=== PATIENT | female | born 1955 | race Caucasian/White ===

== ENCOUNTER 2025-04-29 08:37 | Inpatient (IN) ==
--- NOTE | 2025-04-22 14:43 | Anesthesiology Consultation ---
Date of Service April 22, 2025 Assessment & Plan (1) Encounter for pre-operative examination: - Infectious disease screening: Per assessment on 04/22/25- No known recent infectious disease contacts or current infectious disease symptoms. - "Refusal of blood products" documented by PAT RN phone interview 04/22/25 (OR made aware) Chart Review Chart Review: Acceptable Risk for Surgery (pending evaluation DOS) and Patient NOT seen in Pre Admission Testing History Surgery Operation Date: 04/29/25 07:15 Proposed Procedures p Laparoscopic Versus Possible Open Lower Anterior Colon Resection - Vitor Monson, Height/Weight Height: 5 ft 1 in Weight: 63.503 kg Allergies Allergy/AdvReac Type Severity Reaction Status Date / Time metronidazole [From Flagyl] Allergy Unknown Hives Verified 04/22/25 14:04 Medications Home Medications Medication Instructions Recorded Confirmed Last Taken aspirin 81 mg tablet 81 mg PO DAILY 03/11/25 04/22/25 Unknown cholecalciferol (vitamin D3) 25 25 mcg PO DAILY 03/11/25 04/22/25 Unknown mcg (1,000 unit) capsule lisinopril 20 mg tablet 20 mg PO QAM 03/11/25 04/22/25 Unknown multivitamin 1 tab PO DAILY 03/11/25 04/22/25 Unknown omega 2-tct-vgh-fish oil 1,000 mg 1 cap PO DAILY 03/11/25 04/22/25 Unknown (120 mg-180 mg) capsule (Fish Oil) Past Medical History Medical History Basal cell carcinoma removed from left yazidism Colonic stricture HTN (hypertension) Hx of migraines Refusal of blood product Past Family History Family History Father Cancer Mother Cancer Grandmother Breast cancer Past Surgical History Surgical History H/O colonoscopy 12/30/24 + 01/19/25 History of surgery on wrist x2 Social History Smoking Status: Never smoker Do You Dip or Chew Tobacco: No Hx Alcohol Use: Yes Alcohol type: wine alcohol intake frequency: a few times a month Hx Substance Use: No substance use type: does not use Lab Results Anesthesia Preop Results Results Anesthesia Widget: Na 141 mmol/L (136-145) 03/02/25 K 4.4 mmol/L (3.5-5.1) 03/02/25 Cl 107 mmol/L (98-107) 03/02/25 CO2 29.0 mmol/L (21-32) 03/02/25 BUN 20.0 mg/dL (7-18) H 03/02/25 Creat 1.00 mg/dL (0.6-1.2) 03/02/25 Glucose Level 86 mg/dL (70-99) 03/02/25 Testing Laboratory Results 03/02/25 WBC 7.5 H/H 12.4/40.9 PLATELETS 420 Electrocardiogram Date: 03/31/25 SB at 58bpm. Marked LAD. Possible anterior myocardial infarction of indeterminate age. No physical limitations, denies SOB with stairs, no noted cardiopulmonary limiting complaints per PAT RN phone interview 04/22/25*
[2025-04-29] MEDS: LR 15ML/HR IV SCH (09:09)
[2025-04-29] MEDS ORDERED: MIDAZOLAM HCL 1 MG/ML 2ML VIAL ONE (09:21)
[2025-04-29] MEDS ORDERED: LIDOCAINE 2% 2 ML VIAL/AMP(20MG/ML) INFIL ONE (09:23)
[2025-04-29] MEDS ORDERED: PROPOFOL IV EMULSION 10 MG/ML 20 ML VIAL IV ONE (09:23)
[2025-04-29] MEDS ORDERED: ONDANSETRON INJ 2 MG/ML 2 ML VIAL ONE (09:23)
[2025-04-29] MEDS ORDERED: DEXAMETHASONE SOD INJ 4 MG/ML VIAL ONE (09:23)
--- NOTE | 2025-04-29 09:27 | History & Physical Report ---
Date of Service April 29, 2025 Assessment & Plan (1) Colonic stricture: Plan: discussed options/risks. questions answered. will proceed today with laparoscopic low anterior resection with intra-operative colonoscopy. pt agrees with the plan History of Present Illness Primary Care Provider: Nikos Aviles, pt here for colectomy for sigmoid stricture. no major changes to her health history since I had seen her last Allergies Allergy/AdvReac Type Severity Reaction Status Date / Time metronidazole [From Flagyl] Allergy Unknown Hives Verified 04/29/25 09:14 Home Medications Medication Instructions Recorded Confirmed Type aspirin 81 mg tablet 81 mg PO DAILY 03/11/25 04/29/25 History cholecalciferol (vitamin D3) 25 25 mcg PO DAILY 03/11/25 04/29/25 History mcg (1,000 unit) capsule lisinopril 20 mg tablet 20 mg PO QAM 03/11/25 04/29/25 History multivitamin 1 tab PO DAILY 03/11/25 04/29/25 History omega 5-lqw-vkc-fish oil 1,000 mg 1 cap PO DAILY 03/11/25 04/29/25 History (120 mg-180 mg) capsule (Fish Oil) Past Med/Surg History Problem List Encounter for pre-operative examination Colonic stricture Hypertension Medical History Basal cell carcinoma removed from left worship Colonic stricture HTN (hypertension) Hx of migraines Refusal of blood product Surgical History H/O colonoscopy 12/30/24 + 01/19/25 History of surgery on wrist x2 Family History Father Cancer Mother Cancer Grandmother Breast cancer Social History Smoking Status: Never smoker Second Hand Exposure: No; Do You Dip or Chew Tobacco: No; Tobacco Cessation Education Requested by Patient: No Hx Alcohol Use: Yes Alcohol type: wine Alcohol Intake Frequency: Monthly or Less Hx Substance Use: No Preferred Language: Greenlandic Communication Ability: Effective Enterprise Solutions Architect Required: No Beliefs That Will Affect Care: Orthodoxy Orthodoxy Beliefs: refusal blood transfusions marital status: / Current Living Situation: Alone current occupational status: retired How many Children do You have: 2 Other Information That Helps Us Care for You: No Feels Safe at Home: Yes Safety Concerns: Feels Safe At This Time during the past year weight has: decreased > 10 lbs Assistive Devices: Glasses Physical Exam Constitutional: WD/WN, vitals as above no acute distress and not ill appearing Eyes: PERRL, conjunctivae normal, anicteric sclerae EOM intact bilaterally ENMT: external ear and nose normal, oropharynx normal Ears: no hearing impairment Neck: trachea midline, no thyromegaly Respiratory: normal respiratory effort; no respiratory distress and does not use accessory muscles Cardiovascular: Rate/Rhythm: regular rate and regular rhythm Gastrointestinal (Abdomen): normal bowel sounds, soft, nontender, no hepatosplenomegaly Skin: no rashes, warm and dry Psychiatric: Orientation: alert, oriented x 3 and cooperative Results & Data Vital Signs (Past 12 Hours) Vital Signs Temp Pulse Resp BP Pulse Ox O2 Del Method 04/29/25 08:50 36.4 C L 76 19 143/86 H 97 Room Air
[2025-04-29] MEDS ORDERED: ROCURONIUM BROMIDE 10 MG/ML 5 ML VIAL IV ONE ×3 (09:45→13:20)
[2025-04-29] MEDS ORDERED: HYDROmorphone INJ 2 MG/ML SYR/VIAL IV PRN (09:55)
[2025-04-29] MEDS ORDERED: ATROPINE SULFATE 0.1 MG/ML 10ML SYR IV PRN (09:55)
[2025-04-29] MEDS ORDERED: KETOROLAC 30 MG/ML VIAL IV PRN (09:55)
[2025-04-29] MEDS ORDERED: HYDROmorphone INJ 2 MG/ML SYR/VIAL ONE (10:51)
[2025-04-29] MEDS ORDERED: LABETALOL HCL IV 5 MG/ML 20ML IV ONE (11:23)
[2025-04-29] MEDS ORDERED: ACETAMINOPHEN 1000 MG/100 ML IV IV ONE (12:00)
[2025-04-29] MEDS ORDERED: ALBUMIN HUMAN 5% 12.5 GM/250 ML VIAL IV ONE (12:00)
[2025-04-29] MEDS ORDERED: SODIUM CHLORIDE 0.9% 100 ML IV PRN (12:43)
[2025-04-29 12:53] LABS: Hematocrit (blood only) 33.1 % (37.0-47.0); Hemoglobin 10.8 g/dl (12.0-16.0); Mean Corpuscular Hemoglobin 27.4 pg (25.0-34.0); Mean Corpuscular Volume 84.0 fL (80.0-100.0); Platelet Count 167 K/uL (130-400); RDW Standard Deviation 46.3 fL (36.4-46.3); Red Blood Count 3.94 M/uL (4.20-5.40); White Blood Count 18.07 K/ul (4.8-10.8)
[2025-04-29] MEDS ORDERED: SUGAMMADEX SODIUM 200 MG/2 ML VIAL IV ONE (13:53)
[2025-04-29] MEDS ORDERED: ceFAZolin 330 MG/ML 1 GM VIAL ONE (13:58)
[2025-04-29] MEDS: BUPIVACAINE/EPINEPHRINE 0.5% MPF 1:200,000 30 ML VIAL ONE (14:28)
--- NOTE | 2025-04-29 14:29 | Operative Report ---
PG Post Operative Report Pre & Post Diagnosis Operation Date: 04/29/25 09:55 Pre-Op Diagnosis: Colonic stricture Post-Op Diagnosis: Colonic stricture; extensive adhesions I identified the patient and participated in the time-out.: Yes Procedure Operation Date: 04/29/25 09:55 Actual Procedures p Laparoscopic Exploration; converted to Open Low Anterior Colon Resection with Handsewn Anastomosis(Not Applicable); mobilization of splenic flexure - Vitor Monson DO Surgeon Vitor Monson DO Felt Hat Mellowing Machine Operator geronimo Suero Estimated Blood Loss 500 Findings Consistent with Post-Op Diagnosis Specimens recto-sigmoid Description of Procedure After informed consent was obtained the patient was taken to the operating room and placed in supine position. After successful intubation the patient was placed in a low lithotomy position. A Aguirre catheter was placed sterilely. Both arms were tucked. I began with a supraumbilical incision. This was carried down through the soft tissue using cautery. Anterior fascia was opened using cautery and two #0 Vicryl stay sutures were placed. Peritoneum was elevated with hemostats and incised under direct vision using a Metzenbaum scissor. Finger sweep was performed. A 12 mm Ferrari trocar was placed and the abdomen was insufflated to 18 mmHg. Laparoscope was inserted and the abdomen was examined 360 degrees. A right lower quadrant 12 mm trocar a right mid abdominal 5 mm trocar and eventually a left mid abdominal 5 mm trocar would be placed. The patient was placed in a Trendelenburg position and airplaned to the right. I began looking at the sigmoid colon. From the sigmoid colon down over the pelvic brim the colon was extremely hard and completely adhesed to the left pelvic sidewall as well as the uterus. I began above the area of pathology and mobilized the white line of Toldt using harmonic scalpel and gentle blunt dissection. I then went distal to the area of pathology and mobilized the colon away from the left fallopian tube as well as the uterus. There was a probably 6 cm segment of bowel that was just extremely firm and nonmobile. I therefore made a small window in the mesentery proximal to the pathology and divided the colon using a QI purple cartridge linear stapler. I then used the harmonic scalpel and began taking down the mesentery. I attempted to mobilize the colon for about an hour. At this point I decided that it was not safe to continue and I converted to a midline laparotomy. We removed all the trocars and desufflated the abdomen. I extended the camera port site several centimeters proximally and then distally down to the pubic symphysis. Once in the abdomen I continued to mobilize the inflamed colon using my hands primarily blunt dissection and small amounts of harmonic scalpel. We did use the Bookwalter retractor throughout to dietitian helper our exposure. Eventually I was able to mobilize it. The bowel itself appeared to be too inflamed to perform a stapled anastomosis. There also was not much in the way of extra redundant colon. I therefore mobilized the remainder of the left colon up and around the splenic flexure to the mid transverse colon. I then had my physician fitness assistant go down to the rectum and placed a 25 mm sizer to make sure we had traversed the strictured area and were not leaving any of it behind. I picked a spot distal to the stricture , clamped it with a bowel clamp and divided using a heavy Verma scissor. We then used Allis clamps to close the stump to prevent any leakage. We took down the remainder of the mesentery using the harmonic scalpel and passed the specimen off to be sent to pathology. At this point I set about performing a handsewn low anterior anastomosis. After mobilizing the splenic flexure I was able to lay the left colon over the pelvic brim. We freshened up the edges. 3-0 silk was used in simple erupted fashion to place a posterior serosal layer of suture s. We then used 3-0 Monocryl to perform a running mucosal/serosal layer using the Edith stitch technique. Once I had the anastomosis completely completed we then changed our gloves and thoroughly irrigated the pelvis. We did do a leak test using a rigid proctoscope. I used my hands to pinch off the colon proximal to the anastomosis and inflated it under water. There was 1 small area on the anterior portion with a small bubble leak. I reinforced this using additional 3-0 Monocryl. We then retested it and there was no evidence of any anastomotic leak whatsoever. I then completed the anastomosis using 3-0 silk for an anterior layer. A final irrigation was performed. There was adequate hemostasis. A 10 flat Sherwin-De Leon drain was placed into the pelvis and brought out through the right lower quadrant trocar site. It was secured to the skin using 2-0 nylon. The fascia was closed using oh looped PDS starting either pole running and securing them together in the midline. Soft tissue was irrigated and skin was closed with a skin stapler over quarter inch Shane drain. Silver dressings were used. The patient was awakened extubated and transferred to recovery in stable condition. My physician fitness assistant was present through the entire case was instrumental in providing exposure assisting with the anastomosis wound closure and dressing placement. I attest to the content of the Intraoperative Record and any orders documented therein. Any exceptions are noted below.
--- NOTE | 2025-04-29 15:23 | Anesthesiology Progress Note ---
Date of Service April 29, 2025 Anesthesia Post Procedure Vital Signs Vital Signs: Temp Pulse Pulse Resp BP Pulse Ox O2 Del Method 04/29/25 15:10 79 17 138/83 93 Room Air 04/29/25 15:00 61 11 L 142/72 H 99 Oxymask 04/29/25 14:50 66 16 139/78 98 Oxymask 04/29/25 14:40 61 16 137/72 98 Oxymask 04/29/25 14:30 65 13 140/74 100 Oxymask 04/29/25 14:21 36.0 C L 71 12 156/84 H 100 Oxymask 04/29/25 08:50 36.4 C L 76 19 143/86 H 97 Room Air O2 Flow Rate 04/29/25 15:10 0 04/29/25 15:00 4 04/29/25 14:50 4 04/29/25 14:40 4 04/29/25 14:30 4 04/29/25 14:21 4 04/29/25 08:50 Pain Intensity Abdomen: Pain Intensity: 4 Transfer of Care Handoff Completed per policy Notes Mental Status: alert / awake / arousable and participated in evaluation Patient Amnestic to Procedure: Yes Nausea / Vomiting: adequately controlled Pain: adequately controlled Airway Patency, RR, SpO2: stable & adequate BP & HR: stable & adequate Hydration State: stable & adequate Anesthetic Complications: no major complications apparent and Pt Satisfied with anesthetic care
[2025-04-29] MEDS ORDERED: MoRPHine SULFATE 4 MG/ML 1 ML CARP\\VIAL IV PRN (16:36)
[2025-04-29] MEDS: LACTATED RINGER'S 1,000 ML IV SCH (16:56)
--- NOTE | 2025-04-29 17:51 | Hospitalist Consultation ---
Date of Consultation April 29, 2025 Assessment & Plan (1) Colonic stricture: Colonic stricture s/p operative intervention 04/29: S/p ex lap, conversion to open low anterior colon resection with handsewn anastomosis, mobilization of splenic flexure Stapled anastomosis was not performed due to significant inflammation Received perioperative cefazolin DVT prophylaxis, diet per primary team Pain control with Tylenol first-line, scaled morphine second line Denies cardiac comorbidities/heart failure/chest pain. Had a EKG with sinus bradycardia. She has appropriate chronotropic response and is not bradycardic at the bedside. Hypertension Lisinopril held day of operative intervention BMP morning of 04/30. If creatinine normal lisinopril 04/30, hold for JACK or hypotension Atelectasis 2 L oxygen requirement, she is saturating 100% at the bedside Wean oxygen to goal 90%. Do not hyperoxygenated greater than 94% Incentive spirometer encouraged. Suspect mild atelectasis. (2) Hypertension: History of Present Illness Attending Physician: Vitor Monson, DO History of Present Illness Gilma is a 69-year-old female with a past medical history of essential hypertension who presented for operative intervention of a colonic stricture. She underwent ex lap with mobilization of splenic flexure. And conversion to open low anterior colon resection with handsewn anastomosis on 04/28/2025. We are consulted for medical management Gilma is seen at the bedside postop. She reports that she has been seen for bowel obstruction and had surgical resection as planned today. She reports she has some postoperative tenderness this is currently 45/10 and tolerable to her. Throat is a little sore in the breathing tube and she feels she has a little bit of postnasal drip. Otherwise no complaints. Denies shortness of breath or difficulty breathing. No fevers chills or sweats. Endorses a history of hypertension well-controlled with lisinopril, she denies any other medical problems other than this and her bowel blockage. She reports that she has had no history of blood clots or easy bleeding. No history of diabetes. She takes no prescription medications other than lisinopril. She does not use tobacco products Denies alcohol use Denies recreational drug use Denies allergies other than Flagyl Allergies Allergy/AdvReac Type Severity Reaction Status Date / Time metronidazole [From Flagyl] Allergy Unknown Hives Verified 04/29/25 09:14 Home Medications Medication Instructions Recorded Confirmed Type aspirin 81 mg tablet 81 mg PO DAILY 03/11/25 04/29/25 History cholecalciferol (vitamin D3) 25 25 mcg PO DAILY 03/11/25 04/29/25 History mcg (1,000 unit) capsule lisinopril 20 mg tablet 20 mg PO QAM 03/11/25 04/29/25 History multivitamin 1 tab PO DAILY 03/11/25 04/29/25 History omega 4-sye-lhw-fish oil 1,000 mg 1 cap PO DAILY 03/11/25 04/29/25 History (120 mg-180 mg) capsule (Fish Oil) Patient History Medical History Refusal of blood product Hx of migraines HTN (hypertension) Colonic stricture Basal cell carcinoma removed from left nondenominational Surgical History (Updated 04/29/25 @ 14:59 by Alice Villanueva, ANNETTE) History of colon resection (04/29/25) Laparoscopic Exploration; converted to Open Low Anterior Colon Resection with Handsewn Anastomosis; mobilization of splenic flexure - Vitor Monson, History of surgery on wrist x2 H/O colonoscopy 12/30/24 + 01/19/25 Family History Father Cancer Mother Cancer Grandmother Breast cancer Social History Smoking Status: Never smoker Second Hand Exposure: No; Do You Dip or Chew Tobacco: No; Tobacco Cessation Education Requested by Patient: No Hx Alcohol Use: Yes Alcohol type: wine Alcohol Intake Frequency: Monthly or Less Hx Substance Use: No Preferred Language: Arabic Communication Ability: Effective Beverage Steward Required: No Beliefs That Will Affect Care: Catholic Catholic Beliefs: refusal blood transfusions marital status: / Current Living Situation: Alone current occupational status: retired How many Children do You have: 2 Other Information That Helps Us Care for You: No Feels Safe at Home: Yes Safety Concerns: Feels Safe At This Time during the past year weight has: decreased > 10 lbs Assistive Devices: Glasses Physical Exam Physical Exam: General: A&Ox3. NAD. Cooperative. HEENT: Atraumatic, normocephalic. Vision and hearing grossly intact Pulm: CTAB A&P. -wheezes, -rales, -rhonchi. Symmetrical chest rise. No increased work of breathing. No respiratory distress. Cardiac: RRR, -mrg. Radial pulses intact and symmetrical. Abdominal: Appropriate postoperative tenderness without rigidity/involuntary guarding. Mildly diffusely tender. Bowel sounds diminished, but present Results & Data Results & Data Vital Signs (Past 12 Hours) Vital Signs Temp Pulse Pulse Pulse Pulse Resp BP 04/29/25 17:34 36.3 C L 84 16 122/76 04/29/25 17:00 36.4 C L 94 H 16 126/79 04/29/25 16:30 36.4 C L 85 14 119/80 04/29/25 16:10 36.3 C L 87 19 129/79 04/29/25 16:00 78 17 129/73 04/29/25 15:50 73 12 127/76 04/29/25 15:40 70 14 133/75 04/29/25 15:30 58 L 15 129/76 04/29/25 15:20 63 13 121/75 04/29/25 15:10 79 17 138/83 04/29/25 15:00 61 11 L 142/72 H 04/29/25 14:50 66 16 139/78 04/29/25 14:40 61 16 137/72 04/29/25 14:30 65 13 140/74 04/29/25 14:21 36.0 C L 71 12 156/84 H 04/29/25 08:50 36.4 C L 76 19 143/86 H Pulse Ox O2 Del Method O2 Flow Rate 04/29/25 17:34 99 Nasal Cannula 2 04/29/25 17:00 99 Nasal Cannula 2 04/29/25 16:30 98 Room Air 04/29/25 16:10 97 Nasal Cannula 2 04/29/25 16:00 98 Nasal Cannula 2 04/29/25 15:50 98 Nasal Cannula 2 04/29/25 15:40 99 Nasal Cannula 2 04/29/25 15:30 99 Nasal Cannula 2 04/29/25 15:20 98 Nasal Cannula 2 04/29/25 15:10 93 Room Air 0 04/29/25 15:00 99 Oxymask 4 04/29/25 14:50 98 Oxymask 4 04/29/25 14:40 98 Oxymask 4 04/29/25 14:30 100 Oxymask 4 04/29/25 14:21 100 Oxymask 4 04/29/25 08:50 97 Room Air PG Care Time/CCT Total # of Minutes Spent Total Time Spent with Patient: Total time spent is greater than 50% in coordination of care (as documented) at patient's floor/unit and/or counseling patient: Coding Level of Care Code 89361 IN/OBS CONSULT LVL 3,45M Diagnoses Colonic stricture K56.699 Hypertension I10
[2025-04-29] MEDS: ACETAMINOPHEN 1,000 MG/100 ML VIAL IV SCH (20:33)
[2025-04-29] MEDS: ONDANSETRON INJ 2 MG/ML 2 ML VIAL IV PRN (22:10)
[2025-04-30 06:55] LABS: Hematocrit (blood only) 32.6 % (37.0-47.0); Hemoglobin 10.6 g/dl (12.0-16.0); Immature Granulocytes # (auto) 0.08 K/uL (0.01-0.20); Immature Granulocytes % (auto) 0.5 %; Mean Corpuscular Hemoglobin 28.0 pg (25.0-34.0); Mean Corpuscular Volume 86.2 fL (80.0-100.0); Platelet Count 307 K/uL (130-400); RDW Standard Deviation 47.7 fL (36.4-46.3); Red Blood Count 3.78 M/uL (4.20-5.40); White Blood Count 17.33 K/ul (4.8-10.8)
[2025-04-30 07:11] LABS: Anion Gap 5.0 (3-11); Blood Urea Nitrogen 13.0 mg/dl (6-23); Calcium 8.2 mg/dl (8.6-10.3); Carbon Dioxide 26.0 mmol/L (21-32); Chloride 107.0 mmol/L (98-107); Creatinine Clr Calc Pharmacy 52.5 ml/min; Glucose 122.0 mg/dl (70-99(Fasting)); Potassium 4.7 mmol/L (3.5-5.1); Sodium 138.0 mmol/L (136-145)
--- NOTE | 2025-04-30 08:33 | Surgery Progress Note ---
Date of Service April 30, 2025 Assessment & Plan (1) History of colon resection: Plan: Doing as expected postop day 1 H/H is stable Will allow some clear liquids today. Out of bed today Dr. Pierre covering for the weekend Admission and Anticipated Discharge Date Admission Date: April 29, 2025 Subjective Patient seen. Doing well considering the scope of her surgery. Pain control adequate currently Physical Exam Physical Exam: Alert no acute distress PRITI drain looks good. Abdomen with expected tenderness. Results & Data Vital Signs (Past 12 Hours) Vital Signs Temp Pulse Pulse Resp BP BP Pulse Ox 04/30/25 07:10 36.6 C 72 17 146/76 H 99 04/30/25 03:13 36.5 C 69 18 132/70 98 04/29/25 23:27 37.0 C 73 18 119/72 97 04/29/25 22:33 O2 Del Method O2 Flow Rate 04/30/25 07:10 Room Air 04/30/25 03:13 Nasal Cannula 2 04/29/25 23:27 Nasal Cannula 2 04/29/25 22:33 Nasal Cannula 2 PG Care Time/CCT Total # of Minutes Spent Total Time Spent with Patient: Total time spent is greater than 50% in coordination of care (as documented) at patient's floor/unit and/or counseling patient: Coding Level of Care Code 30312 Post Operative Follow-Up Diagnoses History of colon resection Z90.49
[2025-04-30] MEDS: ASPIRIN 81 MG ECTAB PO SCH (09:21)
[2025-04-30] MEDS: MoRPHine SULFATE 2 MG/ML CARP IV PRN (09:21)
--- NOTE | 2025-04-30 12:54 | Hospitalist Progress Note ---
Date of Service April 30, 2025 Assessment & Plan (1) Colonic stricture: Plan: Colonic stricture s/p operative intervention 04/29: S/p ex lap, conversion to open low anterior colon resection with handsewn anastomosis, mobilization of splenic flexure. Stapled anastomosis was not performed due to significant inflammation. Received perioperative cefazolin Overall doing well, adequate pain control Diet per primary team. Has been advanced to clears DVT prophylaxis per surgical team Pain control with Tylenol first-line, scaled morphine second line Denies cardiac comorbidities/heart failure/chest pain. Had a EKG with sinus bradycardia. She has appropriate chronotropic response and is not bradycardic at the bedside. Hypertension Lisinopril resumed Normotensive Creatinine at baseline Atelectasis Resolved. Continue incentive spirometry while inpatient. Suspect transient oxygen requirement postoperatively was atelectatic. Patient denies other medical comorbidities or acute concerns, appears to be doing well. Will sign off, if any new or acute concerns develop we are happy to see Swati/reconsult anytime. (2) Hypertension: Admission and Anticipated Discharge Date Admission Date: April 29, 2025 Subjective Seen at the bedside. Doing well. Reports her pain is 45/10, tolerable to her this morning. She is laying flat in bed at time of bedside visit. No fevers chills or sweats. No headache. She is not short of breath. No difficulty breathing. No chest pain. Overall feels she is doing well, no acute concerns. Physical Exam Physical Exam: General: A&Ox3. NAD. Cooperative. HEENT: Atraumatic, normocephalic. Vision and hearing grossly intact Pulm: CTAB A&P. -wheezes, -rales, -rhonchi. Symmetrical chest rise. No increase in work of breathing. No respiratory distress. Cardiac: RRR, -mrg. Radial pulses intact and symmetrical. Abdominal: Minimal appropriate postsurgical abdominal tenderness, no focal tenderness rebound guarding or rigidity. Results & Data Results & Data Vital Signs (Past 12 Hours) Vital Signs Temp Pulse Pulse Resp BP BP Pulse Ox 04/30/25 11:52 37.0 C 76 16 127/74 93 04/30/25 07:10 36.6 C 72 17 146/76 H 99 04/30/25 03:13 36.5 C 69 18 132/70 98 O2 Del Method O2 Flow Rate 04/30/25 11:52 Room Air 08/01/25 07:10 Room Air 04/30/25 03:13 Nasal Cannula 2 PG Care Time/CCT Total # of Minutes Spent Total Time Spent with Patient: Total time spent is greater than 50% in coordination of care (as documented) at patient's floor/unit and/or counseling patient: Coding Level of Care Code 81124 SUB INP/OBS CARE 2/35MIN Diagnoses Colonic stricture K56.699 Hypertension I10
[2025-05-01 07:52] LABS: Hematocrit (blood only) 29.8 % (37.0-47.0); Hemoglobin 9.8 g/dl (12.0-16.0); Immature Granulocytes # (auto) 0.08 K/uL (0.01-0.20); Immature Granulocytes % (auto) 0.5 %; Mean Corpuscular Hemoglobin 28.2 pg (25.0-34.0); Mean Corpuscular Volume 85.9 fL (80.0-100.0); Platelet Count 305 K/uL (130-400); RDW Standard Deviation 47.8 fL (36.4-46.3); Red Blood Count 3.47 M/uL (4.20-5.40); White Blood Count 15.48 K/ul (4.8-10.8)
[2025-05-01 08:09] LABS: Anion Gap 2.0 (3-11); Blood Urea Nitrogen 9.0 mg/dl (6-23); Calcium 8.3 mg/dl (8.6-10.3); Carbon Dioxide 29.0 mmol/L (21-32); Chloride 107.0 mmol/L (98-107); Creatinine Clr Calc Pharmacy 62.9 ml/min; Glucose 110.0 mg/dl (70-99(Fasting)); Potassium 4.2 mmol/L (3.5-5.1); Sodium 138.0 mmol/L (136-145)
--- NOTE | 2025-05-01 12:35 | Surgery Progress Note ---
Date of Service May 01, 2025 Assessment & Plan (1) History of colon resection: Plan: POD #2 low anterior resection, awaiting return of bowel function Continue clear liquids, advised her to take it slow Will add Protonix, heartburn and burping should improve once return of bowel Ambulate, out of bed to chair, I-S Lovenox Admission and Anticipated Discharge Date Admission Date: April 29, [address] Monson. POD #2 low anterior resection with handsewn anastomosis. Having heartburn, some burping. No flatus. Not taking in much clear liquid at this point. Physical Exam Constitutional: WD/WN, vitals as above Gastrointestinal (Abdomen): Inspection/Auscultation: + abdominal surgical incision ([place], no infection, Acticoat, external dressing changed) and + abdominal surgical drain present (PRITI serosanguineous) Percussion/Palpation: + abdomen tender (Appropriately tender to palpation) and abdomen soft; no guarding and abdomen not rigid Results & Data Vital Signs (Past 12 Hours) Vital Signs Temp Pulse Resp BP Pulse Ox O2 Del Method 05/01/25 07:25 37 C 88 16 123/69 95 Room Air Laboratory Results Laboratory Results - last 24 hr 04/29/25 05/01/25 08:52 07:29 WBC 15.48 H RBC 3.47 L Hgb 9.8 L Hct 29.8 L MCV 85.9 MCH 28.2 MCHC 32.9 RDW Std Deviation 47.8 H RDW Coeff of Hubert 15.1 H Plt Count 305 MPV 9.8 Immature Gran % (Auto) 0.5 Neut % (Auto) 86.2 Lymph % (Auto) 6.1 [place] % (Auto) 6.5 Eos % (Auto) 0.4 Baso % (Auto) 0.3 Neut # (Auto) 13.36 H Lymph # (Auto) 0.94 L [place] # (Auto) 1.00 H Eos # (Auto) 0.06 Baso # (Auto) 0.04 Immature Gran # (Auto) 0.08 Sodium 138 Potassium 4.2 Chloride 107 Carbon Dioxide 29 Anion Gap 2 L BUN 9 Creatinine 0.71 Est Cr Clr Drug Dosing 62.9 eGFR 90.85 BUN/Creatinine Ratio 12.7 Glucose 110 H Calcium 8.3 L Crossmatch See Detail PG Care Time/CCT Total # of Minutes Spent Total Time Spent with Patient: Total time spent is greater than 50% in coordination of care (as documented) at patient's floor/unit and/or counseling patient: Coding Level of Care Code None Diagnoses History of colon resection Z90.49
[2025-05-01] MEDS: ENOXAPARIN INJ 40 MG/0.4 ML SYR SQ SCH (13:06)
[2025-05-01] MEDS: PANTOprazole 40 MG/10 ML SYR IV SCH (13:06)
[2025-05-02 07:07] LABS: Hematocrit (blood only) 30.1 % (37.0-47.0); Hemoglobin 9.5 g/dl (12.0-16.0); Immature Granulocytes # (auto) 0.08 K/uL (0.01-0.20); Immature Granulocytes % (auto) 0.5 %; Mean Corpuscular Hemoglobin 27.5 pg (25.0-34.0); Mean Corpuscular Volume 87.2 fL (80.0-100.0); Platelet Count 314 K/uL (130-400); RDW Standard Deviation 47.8 fL (36.4-46.3); Red Blood Count 3.45 M/uL (4.20-5.40); White Blood Count 17.22 K/ul (4.8-10.8)
[2025-05-02 07:30] LABS: Anion Gap 4.0 (3-11); Blood Urea Nitrogen 8.0 mg/dl (6-23); Calcium 8.2 mg/dl (8.6-10.3); Carbon Dioxide 28.0 mmol/L (21-32); Chloride 106.0 mmol/L (98-107); Creatinine Clr Calc Pharmacy 73.2 ml/min; Glucose 104.0 mg/dl (70-99(Fasting)); Potassium 3.9 mmol/L (3.5-5.1); Sodium 138.0 mmol/L (136-145)
--- NOTE | 2025-05-02 10:16 | Surgery Progress Note ---
Date of Service May 02, 2025 Assessment & Plan (1) History of colon resection: Plan: POD #3 low anterior resection, awaiting return of bowel function. WBC elevated, was 18 preop. Continue to monitor. Continue clear liquids, await return of bowel function Continue Protonix heartburn and burping should improve once return of bowel Ambulate, out of bed to chair, I-S Admission and Anticipated Discharge Date Admission Date: April 29, [address] Monson. POD #3 low anterior resection with handsewn anastomosis. Still having heartburn, some burping. No flatus. Not taking in much clear liquid at this point. Physical Exam Constitutional: WD/WN, vitals as above Gastrointestinal (Abdomen): Inspection/Auscultation: + abdominal surgical incision ([place], no infection, Acticoat, external dressing changed) and + abdominal surgical drain present (PRITI serosanguineous) Percussion/Palpation: + abdomen tender (Appropriately tender to palpation) and abdomen soft; no guarding and abdomen not rigid Results & Data Vital Signs (Past 12 Hours) Vital Signs Temp Pulse Resp BP Pulse Ox O2 Del Method 05/02/25 07:07 36.5 C 89 16 139/80 95 Room Air 05/01/25 23:46 37.6 C H 91 H 16 133/80 93 Room Air Laboratory Results Laboratory Results - last 24 hr 05/02/25 06:28 WBC 17.22 H RBC 3.45 L Hgb 9.5 L Hct 30.1 L MCV 87.2 MCH 27.5 MCHC 31.6 L RDW Std Deviation 47.8 H RDW Coeff of Hubert 14.9 H Plt Count 314 MPV 10.0 Immature Gran % (Auto) 0.5 Neut % (Auto) 86.9 Lymph % (Auto) 6.6 [place] % (Auto) 4.8 Eos % (Auto) 1.0 Baso % (Auto) 0.2 Neut # (Auto) 14.95 H Lymph # (Auto) 1.14 L [place] # (Auto) 0.83 H Eos # (Auto) 0.18 Baso # (Auto) 0.04 Immature Gran # (Auto) 0.08 Sodium 138 Potassium 3.9 Chloride 106 Carbon Dioxide 28 Anion Gap 4 BUN 8 Creatinine 0.61 Est Cr Clr Drug Dosing 73.2 eGFR 95.52 BUN/Creatinine Ratio 13.1 Glucose 104 H Calcium 8.2 L PG Care Time/CCT Total # of Minutes Spent Total Time Spent with Patient: Total time spent is greater than 50% in coordination of care (as documented) at patient's floor/unit and/or counseling patient: Coding Level of Care Code None Diagnoses History of colon resection Z90.49
[2025-05-03 06:23] LABS: Hematocrit (blood only) 29.8 % (37.0-47.0); Hemoglobin 9.7 g/dl (12.0-16.0); Immature Granulocytes # (auto) 0.07 K/uL (0.01-0.20); Immature Granulocytes % (auto) 0.4 %; Mean Corpuscular Hemoglobin 28.2 pg (25.0-34.0); Mean Corpuscular Volume 86.6 fL (80.0-100.0); Platelet Count 344 K/uL (130-400); RDW Standard Deviation 47.3 fL (36.4-46.3); Red Blood Count 3.44 M/uL (4.20-5.40); White Blood Count 15.57 K/ul (4.8-10.8)
[2025-05-03 06:40] LABS: Anion Gap 5.0 (3-11); Blood Urea Nitrogen 10.0 mg/dl (6-23); Calcium 8.1 mg/dl (8.6-10.3); Carbon Dioxide 27.0 mmol/L (21-32); Chloride 105.0 mmol/L (98-107); Creatinine Clr Calc Pharmacy 70.9 ml/min; Glucose 88.0 mg/dl (70-99(Fasting)); Potassium 3.6 mmol/L (3.5-5.1); Sodium 137.0 mmol/L (136-145)
--- NOTE | 2025-05-03 09:39 | Surgery Progress Note ---
Date of Service May 03, 2025 Assessment & Plan (1) History of colon resection: Plan: POD #4 low anterior resection WBC 15.5 (17). Vitals stable, no fevers Continue clear liquids, await return of bowel function Majority of travis drain was falling out of the lower portion of incision, i removed this and changed dressing. midline nasrin and incision without infection PRITI serosang, leave in place Ambulate, out of bed to chair, I-S As above. Looks and feels well. Feels as though in a bowel movement is pending. Stay on clears until full return of bowel function. Admission and Anticipated Discharge Date Admission Date: April 29, 2025 Subjective Patient doing okay. Had some abdominal pain after coughing this AM, otherwise manageable. Wiffs of intermittent nausea, but they pass. Otherwise tolerating clears. Physical Exam Physical Exam: awake/alert, sitting in chair Gastrointestinal (Abdomen): Inspection/Auscultation: + abdominal surgical incision (c/d/i, travis drain 80% out. no signs of infection) Percussion/Palpation: + abdomen tender (expected kellee incisional discomfort ) and abdomen soft Results & Data Vital Signs (Past 12 Hours) Vital Signs Temp Pulse Pulse Resp BP Pulse Ox O2 Del Method 05/03/25 08:23 98.2 F 88 16 137/83 95 Room Air 05/03/25 07:23 Room Air 05/02/25 22:25 99.0 F 86 16 154/76 H 94 Room Air PG Care Time/CCT Total # of Minutes Spent Total Time Spent with Patient: Total time spent is greater than 50% in coordination of care (as documented) at patient's floor/unit and/or counseling patient: Coding Level of Care Code 87312 Post Operative Follow-Up Diagnoses History of colon resection Z90.49
[2025-05-04 08:04] LABS: Hematocrit (blood only) 30.9 % (37.0-47.0); Hemoglobin 10.3 g/dl (12.0-16.0); Immature Granulocytes # (auto) 0.04 K/uL (0.01-0.20); Immature Granulocytes % (auto) 0.3 %; Mean Corpuscular Hemoglobin 28.3 pg (25.0-34.0); Mean Corpuscular Volume 84.9 fL (80.0-100.0); Platelet Count 420 K/uL (130-400); RDW Standard Deviation 45.4 fL (36.4-46.3); Red Blood Count 3.64 M/uL (4.20-5.40); White Blood Count 13.05 K/ul (4.8-10.8)
[2025-05-04 08:20] LABS: Anion Gap 6.0 (3-11); Blood Urea Nitrogen 12.0 mg/dl (6-23); Calcium 8.3 mg/dl (8.6-10.3); Carbon Dioxide 30.0 mmol/L (21-32); Chloride 103.0 mmol/L (98-107); Creatinine Clr Calc Pharmacy 68.7 ml/min; Glucose 111.0 mg/dl (70-99(Fasting)); Potassium 4.0 mmol/L (3.5-5.1); Sodium 139.0 mmol/L (136-145)
--- NOTE | 2025-05-04 09:54 | Surgery Progress Note ---
Date of Service May 04, 2025 Assessment & Plan (1) History of colon resection: Plan: Doing as expected Awaiting return of bowel function prior to advancing diet Path still pending Admission and Anticipated Discharge Date Admission Date: April 29, 2025 Subjective Patient seen. Doing okay. Getting lots of bowel noises. Had several small episodes of nausea yesterday as well as some acid reflux. No emesis. She is tolerating clear liquids. She continues to feel as though she is going to have a bowel movement although no function yet Physical Exam Physical Exam: Alert no acute distress Incision looks good. Abdomen is distended. Positive bowel sounds Results & Data Vital Signs (Past 12 Hours) Vital Signs Temp Pulse Resp BP Pulse Ox O2 Del Method 05/04/25 09:38 72 126/69 95 Room Air 05/04/25 08:27 Room Air 05/04/25 07:38 36.5 C 86 16 132/80 94 Room Air 05/03/25 23:38 36.9 C 83 18 136/76 95 Room Air PG Care Time/CCT Total # of Minutes Spent Total Time Spent with Patient: Total time spent is greater than 50% in coordination of care (as documented) at patient's floor/unit and/or counseling patient: Coding Level of Care Code 81559 Post Operative Follow-Up Diagnoses History of colon resection Z90.49
[2025-05-04] MEDS ORDERED: ACETAMINOPHEN 325 MG TAB PO PRN (12:06)
[2025-05-05 07:28] LABS: Hematocrit (blood only) 29.2 % (37.0-47.0); Hemoglobin 9.5 g/dl (12.0-16.0); Immature Granulocytes # (auto) 0.05 K/uL (0.01-0.20); Immature Granulocytes % (auto) 0.5 %; Mean Corpuscular Hemoglobin 27.5 pg (25.0-34.0); Mean Corpuscular Volume 84.6 fL (80.0-100.0); Platelet Count 393 K/uL (130-400); RDW Standard Deviation 45.2 fL (36.4-46.3); Red Blood Count 3.45 M/uL (4.20-5.40); White Blood Count 9.19 K/ul (4.8-10.8)
[2025-05-05 07:45] LABS: Anion Gap 4.0 (3-11); Blood Urea Nitrogen 11.0 mg/dl (6-23); Calcium 8.2 mg/dl (8.6-10.3); Carbon Dioxide 31.0 mmol/L (21-32); Chloride 104.0 mmol/L (98-107); Creatinine Clr Calc Pharmacy 70.9 ml/min; Glucose 95.0 mg/dl (70-99(Fasting)); Potassium 4.1 mmol/L (3.5-5.1); Sodium 139.0 mmol/L (136-145)
--- NOTE | 2025-05-05 11:34 | Surgery Progress Note ---
Date of Service May 05, 2025 Assessment & Plan (1) History of colon resection: Plan: POD #6 low anterior resection WBC 9,Hbg 9.5. Vitals stable She has started having + bowel function Diet is being advanced from liquids to low fiber Midline incision with nasrin and no signs of infection. PRITI serosang (will remove) She is eager to be discharged if tolerates low fiber for lunch, this is reasonable Diet and d/c instructions reviewed, f/u in the office with Dr. Monson in 1 week As above. Feeling well after bowel movement. Would like more to eat. She really would like to go home later today. If she tolerates a light diet her pain is controlled and her bowels are functioning. Discharge home later today if she tolerates food for lunch Admission and Anticipated Discharge Date Admission Date: April 29, 2025 Subjective Patient feeling well. + gas and BM yesterday. Tolerating full liquids, no n/v. pain manageable. Physical Exam Physical Exam: awake/alert, sitting up in chair Respiratory: normal respiratory effort Gastrointestinal (Abdomen): Inspection/Auscultation: + abdominal surgical incision (midline incision without signs of infection, serous fluid on dressing) and + abdominal surgical drain present (serosang); abdomen not distended Percussion/Palpation: abdomen soft Results & Data Vital Signs (Past 12 Hours) Vital Signs Temp Pulse Resp BP Pulse Ox O2 Del Method 05/05/25 07:08 98.2 F 85 15 123/73 96 Room Air PG Care Time/CCT Total # of Minutes Spent Total Time Spent with Patient: Total time spent is greater than 50% in coordination of care (as documented) at patient's floor/unit and/or counseling patient: Coding Level of Care Code 26878 Post Operative Follow-Up Diagnoses History of colon resection Z90.49
[2025-05-05 11:54] VITALS: BP 128/79; PULSE 84; RESP 14; TEMP 97.5; O2SAT 95
--- NOTE | 2025-05-07 10:23 | Discharge Summary ---
Date of Service May 05, 2025 Admission HPI Per Admitting Provider pt here for colectomy for sigmoid stricture. no major changes to her health history since I had seen her last Principal Diagnosis exploratory laparotomy with low anterior colon resection Discharge Exam awake/alert, sitting up in chair Respiratory normal respiratory effort Gastrointestinal (Abdomen) Inspection/Auscultation: + abdominal surgical incision (midline incision without signs of infection, serous fluid on dressing) and + abdominal surgical drain present (serosang); abdomen not distended Percussion/Palpation: + abdomen tender (expected kellee incisional discomfort ) and abdomen soft Discharge Data Allergies Allergy/AdvReac Type Severity Reaction Status Date / Time metronidazole [From Flagyl] Allergy Unknown Hives Verified 04/29/25 09:14 Consultations 04/29/25 16:36 Consult Hospitalist Routine Procedures Performed Operation Date: 04/29/25 09:55 Actual Procedures p Laparoscopic Exploration; Open Lower Anterior Colon Resection with Handsewn Anastomosis(Not Applicable) - Vitor Monson, DO Hospital Course (1) History of colon resection: This is a 69yF with a PMH of colonic stricture who presents to the [facility] on 7 for an elective low anterior colon resection with Dr. Monson. The patient ultimately underwent laparoscopic converted to open low anterior colon resection. The patient tolerated the procedure well, see op note for full details. She recovered in the PACU and was transferred to the med/surg floor in stable condition. She was ordered for 24 hrs post operative antibiotics. On POD#1 she was started on clear liquids. Aguirre catheter was removed and she was able to void spontaneously. Activity and pulmonary toilet encouraged. On POD#2 lovenox started for DVT prophylaxis. Over the next several days her diet was then slowly advanced as she started having return of bowel function in the terms of flatus and BMs. Her mandi drain remained serosang in nature. Midline incision remained intact with nasrin without evidence of infection. On POD#6 the patient was doing well with a diet and having + bowel function. Her surgical drain was removed. She was deemed stable for discharge to home on 8/, with instructions to follow up in the office in 1-[address] Monson. Total Time Total Time Spent Total Time Spent (In Minutes): 15 Discharge Plan Discharge Items Patient Disposition: Home - Home Health Services Reason For Visit: Partial Intestinal Obstruction, Unspecified as of Discharge Diagnosis: Open Lower Anterior Colon Resection Activity: Per Instructions section Lifting: No more than 10 pounds Bathing Comment: may shower; no soaking in tubs/pools x 2 weeks Exercise/Sports: Wait until after follow-up appointment Driving/Machine Use: no driving while taking narcotics for pain Non-emergency contact: Surgeon Call non-emergency contact if: you have any medication questions, your symptoms worsen, your pain is not controlled, your pain is worsening, your pain is unusual for you, you have a fever, your temperature is above 101.5, your wound has increased redness, your wound has increased drainage and your wound pain has increased Follow-up/Referrals: Vitor Monson DO [Surgeon] - (Call office for follow up in 1 week) Nikos Aviles DO [Primary Care Provider] - Diet: Low Fiber Addtl Attending Provider Instructions: SPECIAL CARE INSTRUCTIONS: * Dressing: Change your abdominal dressing daily and as needed if it becomes saturated to your midline with dry 4x4 gauze, ABD pads, and medipore tape. You have nasrin in place that will be removed at your follow up appointment (about 14 days from surgical date) * Where your surgical drain was removed please cover and change dressing daily with dry gauze/tape until healed and no longer draining. * You may shower . NO soaking in pools or baths for 2 weeks * No lifting greater than 10lbs. No exercise until cleared by surgeon. Light walking is accepted. * No driving while taking narcotic pain medication * No drinking alcohol while taking narcotic pain medication * May use Ibuprofen/Tylenol over the counter for pain as tolerated. Do not exceed 3grams of Tylenol per 24 hours * Expect some swelling and bruising. * Diet LOW FIBER Call your doctor if: * Temperature above 101 degrees, nausea/vomiting, fever/chills * Pain not relieved by pain medicine ordered * There is increased drainage or redness from any incision * You have any unanswered questions or concerns [phone]. FOLLOW UP VISIT: If not already scheduled, please call the office for a follow-up visit. Office Pending Studies at Discharge: Yes Studies:: surgical pathology Stand-Alone Forms: My [facility], Pain - Opioid Pain Management Medications and DC Order Prescriptions: New oxycodone 5 mg tablet 5 - 10 mg PO .[id number] PRN (Reason: pain, for initial therapy, max 6 tabs per day) Qty: 15 0RF (DME) Wheeldelphine Walker Misc See Rx Instructions .Route Qty: 1 0RF Rx Instructions: As directed Continued lisinopril 20 mg tablet 20 mg PO QAM aspirin 81 mg tablet 81 mg PO DAILY Patient Comments: on hold multivitamin Tablet 1 tab PO DAILY Patient Comments: holding cholecalciferol (vitamin D3) 25 mcg (1,000 unit) capsule 25 mcg PO DAILY omega 0-kbj-fwj-fish oil [Fish Oil] 1,000 (120-180) mg capsule 1 cap PO DAILY Patient Comments: holding Discharge Orders: Discharge Order (Routine); Ordered 05/05/25 Ordered By: Rosita Jarrett/Other Patient Handouts: Low-Fiber Diet Admission Data Admit Date/Time: 04/29/25 14:20 Attending Provider: Vitor Monson Admit Provider: Vitor Monson Primary Care Provider: Nikos Aviles Other Providers: Deric,Home Health; Jcarlos Quintero Other Interventions: Discharge Summary Assessment (RN) Last Done: 05/05/25 14:33 Coding Level of Care Code 26882 IN/OBS DISCH 30 MIN/LESS Diagnoses History of colon resection Z90.49
== END 2025-05-05 16:12 | disposition home health service (06) | DRG 330 ==
LOC: ASU 08:37 → 3E 14:20
DX: G43.909 Migraine, unspecified, not intractable, without status migrainosus; K56.50 Intestinal adhesions [bands], unspecified as to partial versus complete obstruction; Z79.82 Long term (current) use of aspirin; J98.11 Atelectasis; I10 Essential (primary) hypertension

== ENCOUNTER 2025-05-12 15:33 | Observation (INO) ==
--- NOTE | 2025-05-12 15:59 | History & Physical Report ---
Date of Service May 12, 2025 Assessment & Plan (1) Postoperative wound dehiscence: Plan: This is a 69yF who is recently s/p open low anterior resection with Dr. Monson on 04/29/25. The patient recovered in the hospital well and diet slowly advanced as tolerated as her bowel function returned. She was discharged to home on 05/05/25. She reports since being home she is doing well, tolerating a diet, pain controlled, + bowel function and no nausea/vomiting. She has noticed since her disposition she has been changing her midline dressings multiple times a day as she collects a clear/yellow drainage. She otherwise noted no issues otherwise with her incision. Today she was evaluated in the office for her routine post op check. Upon removal of some of the nasrin it appears a small bowel loop is seen, therefore the remainder of nasrin left in place. She was sent to the ER for evaluation of possible wound dehiscence for planning of CT scan and surgical repair tomorrow. The patient is doing well otherwise no fevers/chills, CP/SOB. In the ER patient's blood work shows WBC 15, Hbg 9.9, and BMP is pending. Vital signs are stable. We are also recommending a CT scan for further evaluation. We will add patient on to the OR schedule for tomorrow for a wound exploration with repair of probable fascial dehiscence. We will follow up on CT scan report to ensure no other issues. Continue dry dressing over her midline incision, change daily and as needed, and make patient NPO at midnight. History of Present Illness Primary Care Provider: Nikos Aviles DO This is a 69yF who is recently s/p open low anterior resection with Dr. Monson on 04/29/25. The patient recovered in the hospital well and diet slowly advanced as tolerated as her bowel function returned. She was discharged to home on 05/05/25. She reports since being home she is doing well, tolerating a diet, pain controlled, + bowel function and no nausea/vomiting. She has noticed since her disposition she has been changing her midline dressings multiple times a day as she collects a clear/yellow drainage. She otherwise noted no issues otherwise with her incision. Today she was evaluated in the office for her routine post op check. Upon removal of some of the nasrin it appears a small bowel loop is seen, therefore the remainder of nasrin left in place. She was sent to the ER for evaluation of possible wound dehiscence for planning of CT scan and surgical repair tomorrow. The patient is doing well otherwise no fevers/chills, CP/SOB. Allergies Allergy/AdvReac Type Severity Reaction Status Date / Time metronidazole [From Flagyl] Allergy Unknown Hives Verified 05/12/25 15:22 Home Medications Medication Instructions Recorded Confirmed Type aspirin 81 mg tablet 81 mg PO DAILY 03/11/25 05/12/25 History cholecalciferol (vitamin D3) 25 25 mcg PO DAILY 03/11/25 05/12/25 History mcg (1,000 unit) capsule lisinopril 20 mg tablet 20 mg PO QAM 03/11/25 05/12/25 History multivitamin 1 tab PO DAILY 03/11/25 05/12/25 History omega 0-vyr-krq-fish oil 1,000 mg 1 cap PO DAILY 03/11/25 05/12/25 History (120 mg-180 mg) capsule (Fish Oil) Loco Walker #1 ea 05/05/25 05/12/25 Rx oxycodone 5 mg tablet 5 - 10 mg (1 - 2 x 5 mg) PO 05/05/25 05/12/25 Rx .[id number] PRN pain, for initial therapy, max 6 tabs per day #15 tabs Past Med/Surg History Problem List (Updated 05/12/25 @ 16:02 by Rosita Suero PA-C) Postoperative wound dehiscence History of colon resection (04/29/25) Laparoscopic Exploration; converted to Open Low Anterior Colon Resection with Handsewn Anastomosis; mobilization of splenic flexure - Vitor Monson, DO Encounter for pre-operative examination Colonic stricture Hypertension Medical History Refusal of blood product Hx of migraines HTN (hypertension) Colonic stricture Basal cell carcinoma removed from left mandaen Surgical History History of surgery on wrist x2 H/O colonoscopy 12/30/24 + 01/19/25 Family History Father Cancer Mother Cancer Grandmother Breast cancer Social History Smoking Status: Never smoker Second Hand Exposure: No; Do You Dip or Chew Tobacco: No; Hx Alcohol Use: Yes Alcohol type: wine Alcohol Intake Frequency: Monthly or Less Hx Substance Use: No Preferred Language: Trinidadian Communication Ability: Effective Summer Child Caregiver Required: No Beliefs That Will Affect Care: Mandaeism Mandaeism Beliefs: refusal blood transfusions marital status: / Current Living Situation: Alone current occupational status: retired How many Children do You have: 2 Feels Safe at Home: Yes during the past year weight has: decreased > 10 lbs Assistive Devices: Cane and Walker Review of Systems Constitutional: no fever and no chills Respiratory: no dyspnea Cardiovascular: no chest pain Gastrointestinal: no abdominal pain, no nausea, no vomiting and no change in bowel habits + drainage from lower portion of incisio n (clear/yellow) Physical Exam Physical Exam: awake/ alert, no distress Respiratory: normal respiratory effort Gastrointestinal (Abdomen): Percussion/Palpation: abdomen soft; abdomen nontender midline incision with nasrin, there is a very small opening in the inferior portion that is revealing pink healthy appearing bowel, small amount of serous fluid on drainage. no signs of infection Results & Data Results & Data Vital Signs (Past 12 Hours) Vital Signs Temp Pulse Resp BP Pulse Ox O2 Del Method 05/12/25 15:35 98.1 F 86 14 122/76 99 Room Air PG Care Time/CCT Total # of Minutes Spent Total Time Spent with Patient: Total time spent is greater than 50% in coordination of care (as documented) at patient's floor/unit and/or counseling patient: Coding Level of Care Code None Diagnoses Postoperative wound dehiscence T81.31XA
[2025-05-12 16:03] LABS: Hematocrit (blood only) 31.6 % (37.0-47.0); Hemoglobin 9.9 g/dl (12.0-16.0); Immature Granulocytes # (auto) 0.09 K/uL (0.01-0.20); Immature Granulocytes % (auto) 0.6 %; Mean Corpuscular Hemoglobin 26.5 pg (25.0-34.0); Mean Corpuscular Volume 84.7 fL (80.0-100.0); Platelet Count 821 K/uL (130-400); RDW Standard Deviation 45.7 fL (36.4-46.3); Red Blood Count 3.73 M/uL (4.20-5.40); White Blood Count 15.37 K/ul (4.8-10.8)
[2025-05-12 16:19] LABS: Anion Gap 7 (3-11); Blood Urea Nitrogen 16 mg/dl (6-23); Calcium 9.1 mg/dl (8.6-10.3); Carbon Dioxide 27 mmol/L (21-32); Chloride 105 mmol/L (98-107); Glucose 136 mg/dl (70-99(Fasting)); Potassium 3.7 mmol/L (3.5-5.1); Sodium 139 mmol/L (136-145)
[2025-05-12 16:39] LABS: INR 1.0 (0.9-1.1); Partial Thromboplastin Time 28 Seconds (21-31); Prothrombin Time 10.8 Seconds (9.0-12.0)
--- NOTE | 2025-05-12 16:43 | CT Scan Report ---
Clinical History: Postoperative dehiscence Technique: Axial computed tomography images were obtained of the abdomen and pelvis without intravenous contrast. No prior examination is available for comparison Findings: The liver is overall of normal size, attenuation, and contour with no sign of cirrhosis or significant fatty infiltration. No definite liver mass lesion is seen on this noncontrast study. The gallbladder appears unremarkable. No bile duct dilatation is noted. The spleen is of normal size. No focal splenic lesion is evident. The pancreas appears normal with no sign of acute or chronic pancreatitis and no mass lesion noted. The pancreatic duct is of normal caliber. The adrenal glands appear unremarkable. No renal or proximal ureteral calculi are seen. There is no hydronephrosis or perinephric stranding. No definite renal mass lesion is identified. The aorta is of normal caliber. No abdominal adenopathy is seen. The stomach appears normal. There is a broad-based ventral hernia containing transverse colon and small bowel loops. There are overlying skin nasrin. There is mild dilatation of the mid jejunum, concerning for a partial small bowel obstruction. There is wall thickening of the distal sigmoid colon. There are apparent anastomotic sutures in this area. There is an approximately 5.4 x 2.2 cm apparent outpouching from this anastomosis towards the right, extending to abut the right superior aspect of the vaginal cuff. No free intraperitoneal fluid or air is identified. No distal ureteral or bladder calculi are seen. There are pockets of air within the urinary bladder that may be due to recent catheterization. The iliac arteries are of normal caliber. No pelvic adenopathy is noted. The uterus has been removed There is mild subsegmental atelectasis in the lung bases. Mild thoracolumbar degenerative disc disease is seen. No fracture is identified. No focal osseous lesion is seen Impression: 1. Mild small bowel dilatation, concerning for a partial small bowel obstruction at the level of the mid to distal jejunum 2. Broad-based ventral hernia containing small and large bowel loops 3. Focal wall thickening of the sigmoid colon. Possible etiologies include colon carcinoma and focal inflammatory colitis 4. Apparent focal outpouching of the sigmoid colon adjacent to anastomotic sutures and the area of wall thickening. This measures approximately 5.4 x 2.2 cm and could contain a contained perforation or a fistula to the vaginal cuff ACT 112: Positive. There are findings on this exam that require communication between the performing entity and the patient following Patient Test Result Information Act ([place] ACT 112) guidelines. Electronically signed by Hugh Jacobs 05-12-2025 4:43 PM
--- NOTE | 2025-05-12 18:16 | Emergency Department Note ---
History of Present Illness General Chief complaint: Abdominal Pain Stated complaint: DOC REFF, LEAKAGE IN BOWEL Time Seen by Provider: 05/12/25 15:39 History of Present Illness Provider complaint: Abdominal pain Maximum Pain Intensity: 2 69-year-old female presents emergency department for abdominal pain. Patient was sent in by her surgeon Dr. Monson who performed a recent surgery on her. Home Medications Medication Instructions Recorded Confirmed Type aspirin 81 mg tablet 81 mg PO DAILY 03/11/25 05/12/25 History cholecalciferol (vitamin D3) 25 25 mcg PO DAILY 03/11/25 05/12/25 History mcg (1,000 unit) capsule lisinopril 20 mg tablet 20 mg PO QAM 03/11/25 05/12/25 History multivitamin 1 tab PO DAILY 03/11/25 05/12/25 History omega 2-fvv-afm-fish oil 1,000 mg 1 cap PO DAILY 03/11/25 05/12/25 History (120 mg-180 mg) capsule (Fish Oil) Wheeled Walker #1 ea 05/05/25 05/12/25 Rx oxycodone 5 mg tablet 5 - 10 mg (1 - 2 x 5 mg) PO 05/05/25 05/12/25 Rx .[id number] PRN pain, for initial therapy, max 6 tabs per day #15 tabs Allergies Allergy/AdvReac Type Severity Reaction Status Date / Time metronidazole [From Flagyl] Allergy Unknown Hives Verified 05/12/25 15:22 Past Med/Surg History Problem List (Updated 05/12/25 @ 18:18 by Gen Burgess MD) Bowel obstruction (Acute) Postoperative wound dehiscence (Acute) History of colon resection (04/29/25) Laparoscopic Exploration; converted to Open Low Anterior Colon Resection with Handsewn Anastomosis; mobilization of splenic flexure - Vitor Monson, DO Encounter for pre-operative examination Colonic stricture Hypertension Medical History Refusal of blood product Hx of migraines HTN (hypertension) Colonic stricture Basal cell carcinoma removed from left orthodox Surgical History History of surgery on wrist x2 H/O colonoscopy 12/30/24 + 01/19/25 Family History Father Cancer Mother Cancer Grandmother Breast cancer Social History Smoking Status: Never smoker Second Hand Exposure: No; Do You Dip or Chew Tobacco: No; Hx Alcohol Use: Yes Alcohol type: wine Alcohol Intake Frequency: Monthly or Less Hx Substance Use: No Preferred Language: B[place] Communication Ability: Effective 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 Beliefs That Will Affect Care: Taoist Taoist Beliefs: refusal blood transfusions marital status: / Current Living Situation: Alone current occupational status: retired How many Children do You have: 2 Feels Safe at Home: Yes during the past year weight has: decreased > 10 lbs Assistive Devices: Cane and Walker Physical Exam Vital Signs Vital Signs - 24 hr 05/12/25 15:35 05/12/25 16:14 05/12/25 16:15 Temperature 36.7 C Temperature Source Temporal Artery Scan Pulse Rate 86 81 Pulse Rate [Right Finger] 80 Respiratory Rate 14 21 Respiratory Effort / Characteristics Non-Labored Spontaneous Respiratory Depth Normal Blood Pressure 122/76 Blood Pressure [Right Arm] 135/81 Blood Pressure Mean 91 Blood Pressure Mean [Right Arm] 99 Pulse Oximetry 99 98 Oxygen Delivery Method Room Air Room Air Sepsis New/Unexplained Change in Mental Status No Sepsis Action Taken by Nursing No Action Required 05/12/25 18:00 Temperature Temperature Source Pulse Rate Pulse Rate [Right Finger] 80 Respiratory Rate 18 Respiratory Effort / Characteristics Non-Labored Spontaneous Respiratory Depth Normal Blood Pressure Blood Pressure [Right Arm] 137/76 Blood Pressure Mean Blood Pressure Mean [Right Arm] 96 Pulse Oximetry 98 Oxygen Delivery Method Room Air Sepsis New/Unexplained Change in Mental Status Sepsis Action Taken by Nursing Physical Exam GENERAL: oriented to person, place, and time. appears well-developed and well- nourished. HENT: Exam performed. - Head: Normocephalic and atraumatic. EYES: Conjunctivae and EOM are normal. Right eye exhibits no discharge. Left eye exhibits no discharge. No scleral icterus. NECK: Normal range of motion. Neck supple. No JVD present. CV: Normal rate, regular rhythm, normal heart sounds and intact distal pulses. There is no peripheral edema. Palpable radial pulses bue. PULM/CHEST: Effort normal and breath sounds normal. No respiratory distress. No stridor. no wheezes. no rales. ABD: The abdomen is soft. There is mild tenderness diffusely to palpation. Surgical nasrin are in place. NEURO: Motor and sensation grossly intact. SKIN: Skin is warm and dry. He is not diaphoretic. PSYCH: normal mood and affect. Behavior is normal. Judgment and thought content normal. Course Course 153: The patient was evaluated in room C6. A complete history and physical exam was performed 154: Received a [place] text from Dr. Monson who recommended CT scan without contrast and states his PA will be down to see the patient. He states they will admit to his service. 170: Labs show leukocytosis of 15.37. Hemoglobin 9.9. CT showed a partial small bowel obstruction and a apparent focal outpouching of the sigmoid colon adjacent to the anastomotic suture measuring 5.4 x 2.2 cm which could contain a contained perforation or fistula of the vaginal cuff. Report was [place] texted to Dr. Monson's team and Dr. Monson responded that they will admit the patient to their service. Medical Decision Making Laboratory Data Attestation: I reviewed the patient's lab results. 05/12/25 15:46 05/12/25 15:46 Lab Results 05/12/25 Range/Units 15:46 WBC 15.37 H (4.8-10.8) K/ul RBC 3.73 L (4.20-5.40) M/uL Hgb 9.9 L (12.0-16.0) g/dl Hct 31.6 L (37.0-47.0) % MCV 84.7 (80.0-100.0) fL MCH 26.5 (25.0-34.0) pg MCHC 31.3 L (32.0-36.0) g/dL RDW Std Deviation 45.7 (36.4-46.3) fL RDW Coeff of Hubert 14.8 H (11.5-14.5) % Plt Count 821 H (130-400) K/uL MPV 9.0 L (9.4-12.4) fL Immature Gran % (Auto) 0.6 % Neut % (Auto) 78.9 % Lymph % (Auto) 11.1 % [place] % (Auto) 7.3 % Eos % (Auto) 1.6 % Baso % (Auto) 0.5 % Neut # (Auto) 12.13 H (1.40-6.50) K/uL Lymph # (Auto) 1.71 (1.20-3.40) K/uL [place] # (Auto) 1.12 H (0.11-0.59) K/uL Eos # (Auto) 0.24 (0.00-0.50) K/uL Baso # (Auto) 0.08 (0.00-0.20) K/uL Immature Gran # (Auto) 0.09 (0.01-0.20) K/uL PT 10.8 (9.0-12.0) Seconds INR 1.0 (0.9-1.1) APTT 28 (21-31) Seconds PTT Ratio 1.0 Sodium 139 (136-145) mmol/L Potassium 3.7 (3.5-5.1) mmol/L Chloride 105 (98-107) mmol/L Carbon Dioxide 27 (21-32) mmol/L Anion Gap 7 (3-11) BUN 16 (6-23) mg/dl Creatinine 0.80 (0.6-1.2) mg/dl Est Cr Clr Drug Dosing Not Reportable eGFR 78.72 BUN/Creatinine Ratio 20.0 (10-20) Glucose 136 H (70-99(Fasting)) mg/dl Calcium 9.1 (8.6-10.3) mg/dl Imaging Data Radiologist's Impression: Abdomen/Pelvis CT 05/12/25 15:47 Clinical History: Postoperative dehiscence Technique: Axial computed tomography images were obtained of the abdomen and pelvis without intravenous contrast. No prior examination is available for comparison Findings: The liver is overall of normal size, attenuation, and contour with no sign of cirrhosis or significant fatty infiltration. No definite liver mass lesion is seen on this noncontrast study. The gallbladder appears unremarkable. No bile duct dilatation is noted. The spleen is of normal size. No focal splenic lesion is evident. The pancreas appears normal with no sign of acute or chronic pancreatitis and no mass lesion noted. The pancreatic duct is of normal caliber. The adrenal glands appear unremarkable. No renal or proximal ureteral calculi are seen. There is no hydronephrosis or perinephric stranding. No definite renal mass lesion is identified. The aorta is of normal caliber. No abdominal adenopathy is seen. The stomach appears normal. There is a broad-based ventral hernia containing transverse colon and small bowel loops. There are overlying skin nasrin. There is mild dilatation of the mid jejunum, concerning for a partial small bowel obstruction. There is wall thickening of the distal sigmoid colon. There are apparent anastomotic sutures in this area. There is an approximately 5.4 x 2.2 cm apparent outpouching from this anastomosis towards the right, extending to abut the right superior aspect of the vaginal cuff. No free intraperitoneal fluid or air is identified. No distal ureteral or bladder calculi are seen. There are pockets of air within the urinary bladder that may be due to recent catheterization. The iliac arteries are of normal caliber. No pelvic adenopathy is noted. The uterus has been removed There is mild subsegmental atelectasis in the lung bases. Mild thoracolumbar degenerative disc disease is seen. No fracture is identified. No focal osseous lesion is seen Impression: 1. Mild small bowel dilatation, concerning for a partial small bowel obstruction at the level of the mid to distal jejunum 2. Broad-based ventral hernia containing small and large bowel loops 3. Focal wall thickening of the sigmoid colon. Possible etiologies include colon carcinoma and focal inflammatory colitis 4. Apparent focal outpouching of the sigmoid colon adjacent to anastomotic sutures and the area of wall thickening. This measures approximately 5.4 x 2.2 cm and could contain a contained perforation or a fistula to the vaginal cuff ACT 112: Positive. There are findings on this exam that require communication between the performing entity and the patient following Patient Test Result Information Act ([place] ACT 112) guidelines. Electronically signed by Hugh Jacobs 05-12-2025 4:43 PM MDM Narrative 1539: The patient was evaluated in room C6. A complete history and physical exam was performed 1547: Received a [place] text from Dr. Monson who recommended CT scan without contrast and states his PA will be down to see the patient. He states they will admit to his service. 1706: Labs show leukocytosis of 15.37. Hemoglobin 9.9. CT showed a partial small bowel obstruction and a apparent focal outpouching of the sigmoid colon adjacent to the anastomotic suture measuring 5.4 x 2.2 cm which could contain a contained perforation or fistula of the vaginal cuff. Report was [place] texted to Dr. Monson's team and Dr. Monson responded that they will admit the patient to their service. Impression & Plan Bowel obstruction, Postoperative wound dehiscence Discharge Plan Visit Data Chief Complaint: Abdominal Pain Stated Complaint: DOC REFF, LEAKAGE IN BOWEL ED Provider: Gen Burgess Discharge Problem: Bowel obstruction, Postoperative wound dehiscence Patient Disposition: Admitted As Inpatient Condition: Fair Forms Stand Alone Forms: [facility] [employer] Prescriptions Prescriptions: No Action lisinopril 20 mg tablet 20 mg PO QAM aspirin 81 mg tablet 81 mg PO DAILY Patient Comments: on hold multivitamin Tablet 1 tab PO DAILY Patient Comments: holding cholecalciferol (vitamin D3) 25 mcg (1,000 unit) capsule 25 mcg PO DAILY omega 8-yua-rip-fish oil [Fish Oil] 1,000 (120-180) mg capsule 1 cap PO DAILY Patient Comments: holding oxycodone 5 mg tablet 5 - 10 mg PO .[id number] PRN (Reason: pain, for initial therapy, max 6 tabs per day) Qty: 15 0RF (DME) Wheeled Walker Misc See Rx Instructions .Route Qty: 1 0RF Rx Instructions: As directed Referrals Referrals: Nikos Aviles DO [Primary Care Provider] -
[2025-05-12] MEDS ORDERED: ACETAMINOPHEN 325 MG TAB PO PRN (19:00)
[2025-05-12] MEDS ORDERED: MoRPHine SULFATE 2 MG/ML CARP IV PRN (19:00)
[2025-05-12] MEDS ORDERED: Patient's HEIGHT &/or WEIGHT Needed SCH (19:15)
[2025-05-12] MEDS: 4.5GM X1 IV STA (20:02)
[2025-05-13] MEDS: SODIUM CHLORIDE 0.9% 1,000 ML IV SCH (00:31)
[2025-05-13] MEDS: PIPERACILLIN/TAZOBACTAM 4.5 GM/100 ML BAG IV SCH (02:06)
[2025-05-13 07:15] LABS: Hematocrit (blood only) 27.6 % (37.0-47.0); Hemoglobin 9.0 g/dl (12.0-16.0); Immature Granulocytes # (auto) 0.06 K/uL (0.01-0.20); Immature Granulocytes % (auto) 0.6 %; Mean Corpuscular Hemoglobin 27.7 pg (25.0-34.0); Mean Corpuscular Volume 84.9 fL (80.0-100.0); Platelet Count 712 K/uL (130-400); RDW Standard Deviation 45.8 fL (36.4-46.3); Red Blood Count 3.25 M/uL (4.20-5.40); White Blood Count 10.64 K/ul (4.8-10.8)
[2025-05-13 07:40] LABS: Anion Gap 7.0 (3-11); Blood Urea Nitrogen 10.0 mg/dl (6-23); Calcium 8.6 mg/dl (8.6-10.3); Carbon Dioxide 27.0 mmol/L (21-32); Chloride 107.0 mmol/L (98-107); Creatinine Clr Calc Pharmacy 50.8 ml/min; Glucose 99.0 mg/dl (70-99(Fasting)); Potassium 3.8 mmol/L (3.5-5.1); Sodium 141.0 mmol/L (136-145)
--- NOTE | 2025-05-13 10:06 | Surgery Progress Note ---
Date of Service May 13, 2025 Assessment & Plan (1) Postoperative wound dehiscence: Plan: pt doing very well clinically CT reviewed with Dr. Chacon.... the kellee-anastomotic findings are unclear especially without contrast. pt had very thickened bowel at the time of the primary surgery.... pt clincially doing very well...has no pain, eating and bowels moving....afebrile and wbc normal today... abdomen likely to be quite hostile 2 weeks post op therefore I do not plan exploration of the pelvis today but rather simple repair of the fascial dehiscence. discussed risks ( bleeding/infection/blood clots/injury to an organ etc...). pt agreeable. will proceed with fascial closure today in OR. (2) History of colon resection: Admission and Anticipated Discharge Date Admission Date: May 12, 2025 Subjective pt seen. feeling well. no complaints. no pain. hungry. Physical Exam Physical Exam: alert. nad. abd: soft. nt. skin mostly intact over top the fascial dehiscence. Results & Data Vital Signs (Past 12 Hours) Vital Signs Temp Pulse Resp BP Pulse Ox O2 Del Method 05/13/25 07:42 36.8 C 75 16 108/69 97 Room Air 05/13/25 02:08 110/71 05/12/25 23:48 36.7 C 78 16 99/62 L 97 Room Air PG Care Time/CCT Total # of Minutes Spent Total Time Spent with Patient: Total time spent is greater than 50% in coordination of care (as documented) at patient's floor/unit and/or counseling patient: Coding Level of Care Code 53257 Post Operative Follow-Up Diagnoses Postoperative wound dehiscence T81.31XA History of colon resection Z90.49
[2025-05-13] MEDS ORDERED: ATROPINE SULFATE 0.1 MG/ML 10ML SYR IV PRN (14:00)
[2025-05-13] MEDS ORDERED: PROMETHAZINE HCL 6.25 MG in SODIUM CHLORIDE 0.9% 50 ML IV PRN (14:00)
[2025-05-13] MEDS: LACTATED RINGER'S 1,000 ML IV SCH ×2 (14:03→18:32)
[2025-05-13] MEDS ORDERED: PROPOFOL IV EMULSION 10 MG/ML 20 ML VIAL IV ONE (14:17)
[2025-05-13] MEDS ORDERED: ROCURONIUM BROMIDE 10 MG/ML 5 ML VIAL IV ONE ×2 (14:17→15:59)
[2025-05-13] MEDS ORDERED: MIDAZOLAM HCL 1 MG/ML 2ML VIAL ONE (14:18)
--- NOTE | 2025-05-13 14:19 | Anesthesiology Consultation ---
Date of Service May 13, 2025 Assessment & Plan ASA ASA2 Proposed Anesthesia Anesthesia Type: General Risk / Benefits Reviewed With: PT / POA / Parent / Guardian, Accepts Plan and Informed Consent Obtained History Surgery Operation Date: 05/13/25 07:00 Proposed Procedures p Wound Exploration with Repair of Fascial Dehiscence - Vitor Monson, DO Height/Weight Height: 5 ft 1 in Weight: 64 kg Allergies Allergy/AdvReac Type Severity Reaction Status Date / Time metronidazole [From Flagyl] Allergy Unknown Hives Verified 05/12/25 15:22 Medications Home Medications Medication Instructions Recorded Confirmed Last Taken aspirin 81 mg tablet 81 mg PO DAILY 03/11/25 05/12/25 04/09/25 cholecalciferol (vitamin D3) 25 25 mcg PO DAILY 03/11/25 05/12/25 2 Months Ago mcg (1,000 unit) capsule ~02/27/25 lisinopril 20 mg tablet 20 mg PO QAM 03/11/25 05/12/25 04/28/25 06:00 multivitamin 1 tab PO DAILY 03/11/25 05/12/25 2 Months Ago ~02/27/25 omega 4-ghz-kim-fish oil 1,000 mg 1 cap PO DAILY 03/11/25 05/12/25 2 Months Ago (120 mg-180 mg) capsule (Fish Oil) ~02/27/25 Wheeled Walker #1 ea 05/05/25 05/12/25 Unknown oxycodone 5 mg tablet 5 - 10 mg (1 - 2 x 5 mg) PO 05/05/25 05/12/25 Unknown .[id number] PRN pain, for initial therapy, max 6 tabs per day #15 tabs Active Medications Generic Name Dose Route Start Last Admin Trade Name Freq PRN Reason Stop Dose Admin Piperacillin Sod/Tazobactam Sod 4.5 gm in 100 mls @ 25 mls/hr 05/13/25 02:00 05/13/25 14:03 Zosyn IV 05/23/25 01:59 Infused Q8H CHADD Infusion Protocol Sodium Chloride 1,000 mls @ 100 mls/hr 05/13/25 00:01 05/13/25 13:35 Nss IV 05/16/25 00:00 0 mls/hr .Q10H CHADD Infusion Lactated Ringer's 1,000 mls @ 15 mls/hr 05/13/25 14:00 05/13/25 14:03 Lr IV 05/16/25 13:59 15 mls/hr .Q24H CHADD Administration Oxycodone HCl 5 mg 05/12/25 19:00 05/12/25 20:40 Oxycodone Hcl Ir 5 Mg Tab (Immediate Release) PO 05/26/25 18:59 5 mg Q4H PRN Administration MODERATE Pain (4,5,6) & Pre PT NPO Date Last Intake of Fluids: 05/12/25 Time Last Intake of Fluids: 22:00 Date Last Intake of Solids: 05/12/25 Time Last Intake of Solids: 09:00 Past Medical History Medical History (Updated 05/12/25 @ 18:18 by Gen Burgess MD) Refusal of blood product Hx of migraines HTN (hypertension) Colonic stricture Basal cell carcinoma removed from left mandaeism Exercise / Class Metabolic Activity II 4-5 Yardwork/Stairs/Walk up hill Past Family History Family History Father Cancer Mother Cancer Grandmother Breast cancer Past Surgical History Surgical History (Updated 05/13/25 @ 10:26 by Alice Villanueva RN) H/O exploratory laparotomy (05/13/25) Laparoscopic Exploration; converted to Open Low Anterior Colon Resection with Handsewn Anastomosis; mobilization of splenic flexure - Vitor Monson, DO History of surgery on wrist x2 H/O colonoscopy 12/30/24 + 01/19/25 Past Anesthesia History No Hx of Anesthesia Complications and No Family Hx of Anesthesia Complications History of PONV No Hx of PONV and No Hx of Motion Sickness Social History Smoking Status: Never smoker Do You Dip or Chew Tobacco: No Hx Alcohol Use: Yes Alcohol type: wine alcohol intake frequency: a few times a month Hx Substance Use: No substance use type: does not use Physical Exam Vital Signs Last Vital Signs Temp 36.9 C 05/13/25 13:37 Pulse 79 05/13/25 13:37 Resp 18 05/13/25 13:37 BP 121/76 05/13/25 13:37 Pulse Ox 98 05/13/25 13:37 O2 Del Method Room Air 05/13/25 13:37 Constitutional no acute distress ENMT Mouth: + dentition abnormality (multiple missing teeth; none loose) Thyromental Distance: > or= 3.5 Finger Breadths Mallampati Class: III Neck normal visual inspection Respiratory normal respiratory effort; no respiratory distress Auscultation: lungs clear to auscultation bilaterally Cardiovascular Rate/Rhythm: regular rate and regular rhythm Heart Sounds: no murmur Musculoskeletal Spine: normal cervical ROM Psychiatric Orientation: alert and oriented x 3 Testing Laboratory Results 05/13/25 06:51 05/13/25 06:51 PT 10.8 Seconds (9.0-12.0) 05/12/25 15:46 INR 1.0 (0.9-1.1) 05/12/25 15:46 APTT 28 Seconds (21-31) 05/12/25 15:46 Day of Procedure Evaluation. Date of Surgery May 13, 2025 Height/Weight Height: 5 ft 1 in Weight: 64 kg Vital Signs Last Vital Signs Temp 36.9 C 05/13/25 13:37 Pulse 79 05/13/25 13:37 Resp 18 05/13/25 13:37 BP 121/76 05/13/25 13:37 Pulse Ox 98 05/13/25 13:37 O2 Del Method Room Air 05/13/25 13:37 Allergies Allergy/AdvReac Type Severity Reaction Status Date / Time metronidazole [From Flagyl] Allergy Unknown Hives Verified 05/12/25 15:22 Medications Home Medications Medication Instructions Recorded Confirmed Last Taken aspirin 81 mg tablet 81 mg PO DAILY 03/11/25 05/12/25 04/09/25 cholecalciferol (vitamin D3) 25 25 mcg PO DAILY 03/11/25 05/12/25 2 Months Ago mcg (1,000 unit) capsule ~02/27/25 lisinopril 20 mg tablet 20 mg PO QAM 03/11/25 05/12/25 04/28/25 06:00 multivitamin 1 tab PO DAILY 03/11/25 05/12/25 2 Months Ago ~02/27/25 omega 0-noe-duu-fish oil 1,000 mg 1 cap PO DAILY 03/11/25 05/12/25 2 Months Ago (120 mg-180 mg) capsule (Fish Oil) ~02/27/25 Wheeled Walker #1 ea 05/05/25 05/12/25 Unknown oxycodone 5 mg tablet 5 - 10 mg (1 - 2 x 5 mg) PO 05/05/25 05/12/25 Unknown .[id number] PRN pain, for initial therapy, max 6 tabs per day #15 tabs Active Medications Generic Name Dose Route Start Last Admin Trade Name Freq PRN Reason Stop Dose Admin Piperacillin Sod/Tazobactam Sod 4.5 gm in 100 mls @ 25 mls/hr 05/13/25 02:00 05/13/25 14:03 Zosyn IV 05/23/25 01:59 Infused Q8H CHADD Infusion Protocol Sodium Chloride 1,000 mls @ 100 mls/hr 05/13/25 00:01 05/13/25 13:35 Nss IV 05/16/25 00:00 0 mls/hr .Q10H CHADD Infusion Lactated Ringer's 1,000 mls @ 15 mls/hr 05/13/25 14:00 05/13/25 14:03 Lr IV 05/16/25 13:59 15 mls/hr .Q24H CHADD Administration Oxycodone HCl 5 mg 05/12/25 19:00 05/12/25 20:40 Oxycodone Hcl Ir 5 Mg Tab (Immediate Release) PO 05/26/25 18:59 5 mg Q4H PRN Administration MODERATE Pain (4,5,6) & Pre PT Past Anesthesia History No Hx of Anesthesia Complications and No Family Hx of Anesthesia Complications History of PONV No Hx of PONV and No Hx of Motion Sickness NPO Date Last Intake of Fluids: 05/12/25 Time Last Intake of Fluids: 22:00 Date Last Intake of Solids: 05/12/25 Time Last Intake of Solids: 09:00 Home Medications Home Medications Medication Instructions Recorded Confirmed Last Taken aspirin 81 mg tablet 81 mg PO DAILY 03/11/25 05/12/25 04/09/25 cholecalciferol (vitamin D3) 25 25 mcg PO DAILY 03/11/25 05/12/25 2 Months Ago mcg (1,000 unit) capsule ~02/27/25 lisinopril 20 mg tablet 20 mg PO QAM 03/11/25 05/12/25 04/28/25 06:00 multivitamin 1 tab PO DAILY 03/11/25 05/12/25 2 Months Ago ~02/27/25 omega 4-pwb-fqb-fish oil 1,000 mg 1 cap PO DAILY 03/11/25 05/12/25 2 Months Ago (120 mg-180 mg) capsule (Fish Oil) ~02/27/25 Wheeled Walker #1 ea 05/05/25 05/12/25 Unknown oxycodone 5 mg tablet 5 - 10 mg (1 - 2 x 5 mg) PO 05/05/25 05/12/25 Unknown .[id number] PRN pain, for initial therapy, max 6 tabs per day #15 tabs Active Medications Generic Name Dose Route Start Last Admin Trade Name Freq PRN Reason Stop Dose Admin Piperacillin Sod/Tazobactam Sod 4.5 gm in 100 mls @ 25 mls/hr 05/13/25 02:00 05/13/25 14:03 Zosyn IV 05/23/25 01:59 Infused Q8H CHADD Infusion Protocol Sodium Chloride 1,000 mls @ 100 mls/hr 05/13/25 00:01 05/13/25 13:35 Nss IV 05/16/25 00:00 0 mls/hr .Q10H CHADD Infusion Lactated Ringer's 1,000 mls @ 15 mls/hr 05/13/25 14:00 05/13/25 14:03 Lr IV 05/16/25 13:59 15 mls/hr .Q24H CHADD Administration Oxycodone HCl 5 mg 05/12/25 19:00 05/12/25 20:40 Oxycodone Hcl Ir 5 Mg Tab (Immediate Release) PO 05/26/25 18:59 5 mg Q4H PRN Administration MODERATE Pain (4,5,6) & Pre PT Exercise / Class Metabolic Activity Metabolic Activity: II 4-5 Yardwork/Stairs/Walk up hill Physical Exam Constitutional: no acute distress Mouth: + dentition abnormality (multiple missing teeth; none loose) Thyromental Distance: > or= 3.5 Finger Breadths Mallampati Class: III Neck: + visual inspection normal Respiratory: + respiratory effort normal and + clear to auscultation bilaterally; no respiratory distress Cardiovascular: + regular rate and + regular rhythm; no murmur Musculoskeletal: no limited cervical ROM Psychiatric: + alert and + oriented x 3 ASA ASA2 Proposed Anesthesia Proposed Anesthesia: General Risk / Benefits Reviewed With: PT / POA / Parent / Guardian, Accepts Plan and Informed Consent Obtained Additional Notes Pt refuses whole blood and packed red blood cells. Albumin is OK
[2025-05-13] MEDS ORDERED: SUGAMMADEX SODIUM 200 MG/2 ML VIAL IV ONE (15:22)
[2025-05-13] MEDS ORDERED: ONDANSETRON INJ 2 MG/ML 2 ML VIAL ONE (15:22)
[2025-05-13] MEDS ORDERED: HYDROmorphone INJ 2 MG/ML SYR/VIAL ONE (15:24)
--- NOTE | 2025-05-13 17:00 | Operative Report ---
PG Post Operative Report Pre & Post Diagnosis Operation Date: 05/13/25 07:00 Pre-Op Diagnosis: Wound dehiscence. Post-Op Diagnosis: Wound dehiscence; extensive adhesions; enterotomy (planned) I identified the patient and participated in the time-out.: Yes Procedure Operation Date: 05/13/25 07:00 Actual Procedures p Wound exploration with repair of fascial dehiscence, extensive enterolysis, partial small bowel resection. - Vitor Monson DO Surgeon Vitor Monson DO [employer] geronimo Kimball Estimated Blood Loss 100 Findings Consistent with Post-Op Diagnosis Specimens portion of small bowel. Description of Procedure After informed consent was obtained the patient was taken the operating room and placed in supine position. After successful intubation the skin nasrin were removed and the entire abdomen was sterilely prepped and draped with a Betadine solution. I began by finger fractionating the skin. This exposed primarily small bowel and large bowel at the superior pole. There was a fair amount of adhesions throughout the abdomen. Worse at the inferior pole. I was able to finger fractionate and sharply lysed the majority of it but this took quite some time. There was a loop of small bowel adhesed to the fascial edge of the right lower quadrant. There is simply no way to bluntly free this up and therefore I had to sharply lyse it. After I did this the bowel did not look healthy enough ( small enterotomy as well) to be viable and I therefore performed a small probably 3 inch partial small bowel resection. I divided the small bowel with a QI brown cartridge stapler on either side of the abnormal serosa. I used the LigaSure to divide the mesentery. I performed a [id number]-wd-[id number] small bowel anastomosis with a QI brown cartridge linear stapler. The common enterotomy was closed using 3-0 Monocryl for serosal/mucosal layers in running fashion. 3- 0 silk was used in Lembert fashion as a serosal layer. 3-0 silk was also used to place a crotch stitch. 2-0 Vicryl was used to close the mesenteric defect. We continued to finger fractionating free up the bowel and omentum etc. I was able to get into the pelvis which appeared pristine. I did not feel the risk benefit would warrant me finger fractionating far enough down to the anastomosis for fear of disrupting it at only 2 weeks postop. No other gross abnormalities were seen. We thoroughly irrigated the entire abdomen. I was able to primarily close the fascia in simple interrupted fashion using a series of #2 Ethibond as well as #1 Ethibond in simple interrupted fashion. Entire wound was then thoroughly irrigated. We loosely closed the skin over a [place] drain with skin nasrin silver dressing was applied. 4 x 4 gauze ABDs and tape were used as an outer layer followed by an abdominal binder. A Aguirre catheter was placed at the end of the case. The patient was awakened extubated and transferred to recovery in stable condition. My physician assistant community manager was present for the entire case and was instrumental in helping assist with the small bowel resection fascial closure and wound closure. I attest to the content of the Intraoperative Record and any orders documented therein. Any exceptions are noted below.
[2025-05-13] MEDS: HYDROmorphone INJ 2 MG/ML SYR/VIAL IV PRN (17:13)
--- NOTE | 2025-05-13 17:41 | Anesthesiology Progress Note ---
Date of Service May 13, 2025 Anesthesia Post Procedure Vital Signs Vital Signs: Temp Pulse Pulse Pulse Resp BP BP 05/13/25 17:40 36.5 C 97 H 19 107/61 05/13/25 17:30 85 17 100/62 05/13/25 17:20 77 19 103/61 05/13/25 17:10 78 24 116/71 05/13/25 17:01 36.4 C L 84 21 136/72 05/13/25 13:37 36.9 C 79 18 05/13/25 07:42 36.8 C 75 16 05/13/25 02:08 05/12/25 23:48 36.7 C 78 16 05/12/25 18:40 36.7 C 77 16 05/12/25 18:40 05/12/25 18:40 36.7 C 77 16 05/12/25 18:18 80 18 137/76 05/12/25 18:00 80 18 BP Pulse Ox Pulse Ox O2 Del Method O2 Del Method O2 Flow Rate 05/13/25 17:40 99 Nasal Cannula 2 05/13/25 17:30 98 Nasal Cannula 2 05/13/25 17:20 98 Nasal Cannula 2 05/13/25 17:10 99 Nasal Cannula 2 05/13/25 17:01 95 Nasal Cannula 2 05/13/25 13:37 121/76 98 Room Air 05/13/25 07:42 108/69 97 Room Air 05/13/25 02:08 110/71 05/12/25 23:48 99/62 L 97 Room Air 05/12/25 18:40 131/77 97 Room Air 05/12/25 18:40 97 Room Air 05/12/25 18:40 131/77 97 Room Air 05/12/25 18:18 98 Room Air 05/12/25 18:00 137/76 98 Room Air Pain Intensity Bilateral Lower Abdomen: Pain Intensity: 2 Medial Abdomen: Pain Intensity: 8 Transfer of Care Handoff Completed per policy Notes Mental Status: alert / awake / arousable Patient Amnestic to Procedure: Yes Nausea / Vomiting: adequately controlled Pain: adequately controlled Airway Patency, RR, SpO2: stable & adequate BP & HR: stable & adequate Hydration State: stable & adequate Anesthetic Complications: no major complications apparent and Pt Satisfied with anesthetic care
[2025-05-13] MEDS ORDERED: HYDROmorphone INJ 0.5 MG/0.5 ML SYR IV PRN (18:24)
[2025-05-13] MEDS: ACETAMINOPHEN 1,000 MG/100 ML VIAL IV SCH (18:34)
[2025-05-14 07:15] LABS: Hematocrit (blood only) 30.8 % (37.0-47.0); Hemoglobin 9.8 g/dl (12.0-16.0); Immature Granulocytes # (auto) 0.19 K/uL (0.01-0.20); Immature Granulocytes % (auto) 0.8 %; Mean Corpuscular Hemoglobin 27.4 pg (25.0-34.0); Mean Corpuscular Volume 86.0 fL (80.0-100.0); Platelet Count 851 K/uL (130-400); RDW Standard Deviation 47.5 fL (36.4-46.3); Red Blood Count 3.58 M/uL (4.20-5.40); White Blood Count 23.14 K/ul (4.8-10.8)
[2025-05-14 07:27] LABS: Anion Gap 8.0 (3-11); Blood Urea Nitrogen 13.0 mg/dl (6-23); Calcium 8.3 mg/dl (8.6-10.3); Carbon Dioxide 26.0 mmol/L (21-32); Chloride 105.0 mmol/L (98-107); Creatinine Clr Calc Pharmacy 41.3 ml/min; Glucose 119.0 mg/dl (70-99(Fasting)); Potassium 4.1 mmol/L (3.5-5.1); Sodium 139.0 mmol/L (136-145)
--- NOTE | 2025-05-14 12:04 | Surgery Progress Note ---
Date of Service May 14, 2025 Assessment & Plan (1) Postoperative wound dehiscence: Plan: Doing as expected postoperative day #1 Keep Aguirre catheter for another 24 hours Will go ahead and initiate clears but patient would be at high risk for postop ileus will monitor closely Monitor leukocytosis. Keep antibiotics for now Admission and Anticipated Discharge Date Admission Date: May 12, 2025 Subjective Patient seen. Having considerable discomfort (expected)... No nausea or vomiting. Physical Exam Physical Exam: Alert no acute distress Abdomen is soft. Binder intact Results & Data Vital Signs (Past 12 Hours) Vital Signs Temp Pulse Pulse Resp BP BP Pulse Ox 05/14/25 11:27 37.0 C 96 H 20 109/72 94 05/14/25 07:58 36.7 C 77 18 121/76 99 05/14/25 07:36 05/14/25 07:13 75 05/14/25 03:29 36.4 C L 69 16 106/69 99 O2 Del Method O2 Flow Rate 05/14/25 11:27 Room Air 05/14/25 07:58 Nasal Cannula 2 05/14/25 07:36 Nasal Cannula 2 05/14/25 07:13 05/14/25 03:29 Nasal Cannula 2 PG Care Time/CCT Total # of Minutes Spent Total Time Spent with Patient: Total time spent is greater than 50% in coordination of care (as documented) at patient's floor/unit and/or counseling patient: Coding Level of Care Code 15976 Post Operative Follow-Up Diagnoses Postoperative wound dehiscence T81.31XA
[2025-05-15 07:17] LABS: Hematocrit (blood only) 27.0 % (37.0-47.0); Hemoglobin 8.5 g/dl (12.0-16.0); Immature Granulocytes # (auto) 0.10 K/uL (0.01-0.20); Immature Granulocytes % (auto) 0.5 %; Mean Corpuscular Hemoglobin 26.6 pg (25.0-34.0); Mean Corpuscular Volume 84.6 fL (80.0-100.0); Platelet Count 776 K/uL (130-400); RDW Standard Deviation 46.0 fL (36.4-46.3); Red Blood Count 3.19 M/uL (4.20-5.40); White Blood Count 19.52 K/ul (4.8-10.8)
[2025-05-15 07:32] LABS: Anion Gap 5.0 (3-11); Blood Urea Nitrogen 12.0 mg/dl (6-23); Calcium 8.5 mg/dl (8.6-10.3); Carbon Dioxide 29.0 mmol/L (21-32); Chloride 104.0 mmol/L (98-107); Creatinine Clr Calc Pharmacy 53.8 ml/min; Glucose 92.0 mg/dl (70-99(Fasting)); Potassium 4.1 mmol/L (3.5-5.1); Sodium 138.0 mmol/L (136-145)
--- NOTE | 2025-05-15 10:22 | Surgery Progress Note ---
Date of Service May 15, 2025 Assessment & Plan (1) S/P small bowel resection: Plan: Doing okay. Patient at high risk for an ileus. Currently no signs of nausea vomiting so we will go ahead and increase her diet to full liquids I would like to have her remain on bedrest today. Keep Aguirre another 24 hours Admission and Anticipated Discharge Date Admission Date: May 12, 2025 Subjective Patient seen. Feeling okay. Does have some abdominal pain but tolerable. Denies any nausea but does not like the clear liquids Physical Exam Physical Exam: Alert no acute distress Her incision looks good with no sign of infection. Fascia appears intact Results & Data Vital Signs (Past 12 Hours) Vital Signs Temp Pulse Pulse Pulse Resp BP Pulse Ox 05/15/25 07:41 05/15/25 07:23 79 05/15/25 07:17 36.8 C 85 18 103/67 95 05/15/25 03:14 36.6 C 79 18 116/75 96 O2 Del Method 05/15/25 07:41 Room Air 05/15/25 07:23 05/15/25 07:17 Room Air 05/15/25 03:14 Room Air PG Care Time/CCT Total # of Minutes Spent Total Time Spent with Patient: Total time spent is greater than 50% in coordination of care (as documented) at patient's floor/unit and/or counseling patient: Coding Level of Care Code 82286 Post Operative Follow-Up Diagnoses S/P small bowel resection Z90.49
[2025-05-16 07:17] LABS: Hematocrit (blood only) 26.3 % (37.0-47.0); Hemoglobin 8.4 g/dl (12.0-16.0); Immature Granulocytes # (auto) 0.14 K/uL (0.01-0.20); Immature Granulocytes % (auto) 0.8 %; Mean Corpuscular Hemoglobin 27.1 pg (25.0-34.0); Mean Corpuscular Volume 84.8 fL (80.0-100.0); Platelet Count 794 K/uL (130-400); RDW Standard Deviation 46.6 fL (36.4-46.3); Red Blood Count 3.10 M/uL (4.20-5.40); White Blood Count 17.07 K/ul (4.8-10.8)
[2025-05-16 07:49] LABS: Anion Gap 8.0 (3-11); Blood Urea Nitrogen 11.0 mg/dl (6-23); Calcium 8.4 mg/dl (8.6-10.3); Carbon Dioxide 26.0 mmol/L (21-32); Chloride 104.0 mmol/L (98-107); Creatinine Clr Calc Pharmacy 60.7 ml/min; Glucose 74.0 mg/dl (70-99(Fasting)); Potassium 3.8 mmol/L (3.5-5.1); Sodium 138.0 mmol/L (136-145)
--- NOTE | 2025-05-16 08:53 | Surgery Progress Note ---
Date of Service May 16, 2025 Assessment & Plan (1) S/P small bowel resection: Plan: She is doing okay. We will gently advance her diet. Also remove her Aguirre today and get her out of bed some. I want the abdominal binder to remain in place. WBC decreasing and she is afebrile. Admission and Anticipated Discharge Date Admission Date: May 12, 2025 Subjective Patient seen. Overall feeling well. Some abdominal discomfort but states that her bowels are starting to grow out and she is feeling hungry. Physical Exam Physical Exam: Alert no acute distress Abdomen soft with expected tenderness. Results & Data Vital Signs (Past 12 Hours) Vital Signs Temp Pulse Pulse Resp BP BP Pulse Ox 05/16/25 08:15 36.6 C 77 16 117/66 96 05/16/25 03:41 36.6 C 75 18 107/65 93 05/16/25 02:29 80 05/15/25 23:57 37.1 C 85 18 115/70 94 O2 Del Method 05/16/25 08:15 Room Air 05/16/25 03:41 Room Air 05/16/25 02:29 05/15/25 23:57 Room Air PG Care Time/CCT Total # of Minutes Spent Total Time Spent with Patient: Total time spent is greater than 50% in coordination of care (as documented) at patient's floor/unit and/or counseling patient: Coding Level of Care Code 21092 Post Operative Follow-Up Diagnoses S/P small bowel resection Z90.49
[2025-05-16] MEDS: HYDROmorphone INJ 0.5 MG/0.5 ML SYR IV PRN (23:03)
[2025-05-17 07:19] LABS: Hematocrit (blood only) 26.3 % (37.0-47.0); Hemoglobin 8.3 g/dl (12.0-16.0); Immature Granulocytes # (auto) 0.17 K/uL (0.01-0.20); Immature Granulocytes % (auto) 1.3 %; Mean Corpuscular Hemoglobin 26.4 pg (25.0-34.0); Mean Corpuscular Volume 83.8 fL (80.0-100.0); Platelet Count 805 K/uL (130-400); RDW Standard Deviation 47.0 fL (36.4-46.3); Red Blood Count 3.14 M/uL (4.20-5.40); White Blood Count 12.65 K/ul (4.8-10.8)
[2025-05-17 07:44] LABS: Anion Gap 7.0 (3-11); Blood Urea Nitrogen 11.0 mg/dl (6-23); Calcium 8.3 mg/dl (8.6-10.3); Carbon Dioxide 28.0 mmol/L (21-32); Chloride 102.0 mmol/L (98-107); Creatinine Clr Calc Pharmacy 67.2 ml/min; Glucose 107.0 mg/dl (70-99(Fasting)); Potassium 3.4 mmol/L (3.5-5.1); Sodium 137.0 mmol/L (136-145)
--- NOTE | 2025-05-17 08:36 | Surgery Progress Note ---
Date of Service May 17, 2025 Assessment & Plan (1) S/P small bowel resection: Plan: pt s/p repair of fascial dehiscence with partial small bowel resection on 05/13 WBC 12.6 (17). Hbg 8. vitals stable Pts pain controlled. no n/v tolerating a diet, + bowel function wearing abdominal binder for support- to be continued able to be OOB as tolerates possible d/c for tomorrow Admission and Anticipated Discharge Date Admission Date: May 12, 2025 Subjective Patient feeling well. Abdominal pain manageable. No nausea/vomiting. Tolerating diet. + flatus and BM Physical Exam Physical Exam: awake/alert, sitting up in chair Respiratory: normal respiratory effort Gastrointestinal (Abdomen): patient sitting up in chair with abdominal binder in place, deferred on exam for now Results & Data Vital Signs (Past 12 Hours) Vital Signs Temp Pulse Pulse Resp BP Pulse Ox O2 Del Method 05/17/25 08:15 97.9 F 98 H 16 100/66 97 Room Air 05/17/25 04:13 97.7 F 78 20 118/69 94 Room Air 05/16/25 23:46 97.9 F 87 20 121/74 94 Room Air 05/16/25 21:44 89 PG Care Time/CCT Total # of Minutes Spent Total Time Spent with Patient: Total time spent is greater than 50% in coordination of care (as documented) at patient's floor/unit and/or counseling patient: Coding Level of Care Code 03573 Post Operative Follow-Up Diagnoses S/P small bowel resection Z90.49
[2025-05-17] MEDS: ACETAMINOPHEN 325 MG TAB PO PRN (15:41)
--- NOTE | 2025-05-18 08:48 | Surgery Progress Note ---
Date of Service May 18, 2025 Assessment & Plan (1) S/P small bowel resection: Plan: doing well d/c planning ....? tomorrow. will call/discuss with daughter. keep travis and abdominal binder. will d/c on antibiotics. Admission and Anticipated Discharge Date Admission Date: May 12, 2025 Subjective pt seen. feeling better each day. candy diet. + multiple bm's. no nausea. Physical Exam Physical Exam: alert. nad incision looks good except small amount of purulent drainage at inferior pole. no erythema or warmth. Results & Data Vital Signs (Past 12 Hours) Vital Signs Temp Pulse Pulse Resp BP Pulse Ox O2 Del Method 05/18/25 08:16 36.9 C 94 H 16 142/68 H 97 Room Air 05/18/25 02:54 37.0 C 93 H 20 109/70 93 Room Air 05/17/25 22:32 Room Air 05/17/25 22:29 36.6 C 84 18 111/74 95 Room Air 05/17/25 22:00 80 PG Care Time/CCT Total # of Minutes Spent Total Time Spent with Patient: Total time spent is greater than 50% in coordination of care (as documented) at patient's floor/unit and/or counseling patient: Coding Level of Care Code 71199 Post Operative Follow-Up Diagnoses S/P small bowel resection Z90.49
[2025-05-18] MEDS: AMOXICILLIN/CLAVULANATE 875 MG TAB PO SCH (17:50)
[2025-05-18] MEDS: ONDANSETRON INJ 2 MG/ML 2 ML VIAL IV PRN (20:41)
[2025-05-19 07:58] VITALS: O2SAT 96
--- NOTE | 2025-05-19 09:33 | Surgery Progress Note ---
Date of Service May 19, 2025 Assessment & Plan (1) Postoperative wound dehiscence: Plan: pt s/p repair of fascial dehiscence with partial small bowel resection on 05/13 Vitals are stable Pts pain controlled. no n/v tolerating a diet, + bowel function wearing abdominal binder for support- to be continued at home Midline incision w/ nasrin and travis drain. some purulence from inferior pole, continue abx and dressing changes able to be OOB as tolerates will see if case management can re-activate home health care for home asked pt to see her PCP in 1 week to discuss if she should resume her lisinopril F/u in office with dr. zuñiga in 1 week Admission and Anticipated Discharge Date Admission Date: May 12, 2025 Subjective Patient feeling well. Some back discomfort from the bed. Abdominal pain controlled. Tolerating food. No n/v. + bowel function Physical Exam Physical Exam: awake/alert, no distress Respiratory: normal respiratory effort Gastrointestinal (Abdomen): midline incision with nasrin and travis, some purulence from inferior pole. no erythema. Results & Data Vital Signs (Past 12 Hours) Vital Signs Temp Pulse Pulse Resp BP Pulse Ox O2 Del Method 05/19/25 07:55 98.6 F 76 12 116/70 96 Room Air 05/19/25 07:08 75 05/19/25 03:26 97.9 F 78 18 113/65 95 Room Air 05/18/25 22:48 99.1 F 81 18 129/73 94 Room Air 05/18/25 22:00 79 PG Care Time/CCT Total # of Minutes Spent Total Time Spent with Patient: Total time spent is greater than 50% in coordination of care (as documented) at patient's floor/unit and/or counseling patient: Coding Level of Care Code 10731 Post Operative Follow-Up Diagnoses Postoperative wound dehiscence T81.31XA
[2025-05-19 11:47] VITALS: BP 124/75; PULSE 83; RESP 16; TEMP 98.2
--- NOTE | 2025-05-20 13:05 | Discharge Summary ---
Date of Service May 19, 2025 Admission HPI Per Admitting Provider This is a 69yF who is recently s/p open low anterior resection with Dr. Monson on 04/29/25. The patient recovered in the hospital well and diet slowly advanced as tolerated as her bowel function returned. She was discharged to home on 05/05/25. She reports since being home she is doing well, tolerating a diet, pain controlled, + bowel function and no nausea/vomiting. She has noticed since her disposition she has been changing her midline dressings multiple times a day as she collects a clear/yellow drainage. She otherwise noted no issues otherwise with her incision. Today she was evaluated in the office for her routine post op check. Upon removal of some of the nasrin it appears a small bowel loop is seen, therefore the remainder of nasrin left in place. She was sent to the ER for evaluation of possible wound dehiscence for planning of CT scan and surgical repair tomorrow. The patient is doing well otherwise no fevers/chills, CP/SOB. Principal Diagnosis repair of post operative wound dehiscence small bowel resection Discharge Exam awake/alert, no distress Respiratory normal respiratory effort Gastrointestinal (Abdomen) midline incision with nasrin. small amount of purulence from inferior pole noted. no erythema. travis drain in place. Discharge Data Allergies Allergy/AdvReac Type Severity Reaction Status Date / Time metronidazole [From Flagyl] Allergy Unknown Hives Verified 05/12/25 15:22 Consultations 05/12/25 15:48 ED Decision to Admit Stat Procedures Performed Operation Date: 05/13/25 07:00 Actual Procedures p Wound exploration with repair of fascial dehiscence, lysis of adhesions, partial small bowel resection. - Vitor Monson, Ordered Studies 05/12/25 15:47 CT abd pelvis wo con Stat Hospital Course (1) Postoperative wound dehiscence: This is a 69yF who presented to the [facility] ER on 05/12 as recommended after her outpatient post op visit revealed findings concerning for wound dehiscence after removing some of her abdominal nasrin. In the ER the patient underwent a CT a/p confirming such. She was admitted under the surgical service and started on IV abx, IVF, and made NPO at midnight. Majority of nasrin remained in place, otherwise dressing was placed over area of concern. On 05/13 the patient went to the OR with Dr. Monson for wound exploration, repair of fascial dehiscence and required a partial small bowel resection with anastomosis after extensive lysis of adhesions. Post operatively patient with a travis drain in her incision and abdominal binder in place. Her diet was slowly advanced from clears to low fiber as her bowel function returned. Given the dehiscence we kept her on bed rest for a couple of days with Jennings in place. When she was able to increase her activity her jennings was removed and she voided without issues. She remained on a course of antibiotics during her stay. She did have some purulence from the bottom of her incision managed with abx, dressings, and travis in place. On 05/19 the patient was tolerating a diet, having + bowel function, and pain well controlled. She was deemed stable for discharge to home with instructions for daily dressing changes, keeping abdominal binder in place, and sent out on a course of oral antibiotics. She was instructed to follow up in the office in 1 weeks time. Total Time Total Time Spent Total Time Spent (In Minutes): 20 Discharge Plan Discharge Items Patient Disposition: Home - Self-Care Reason For Visit: WOUND DEHISENCE Discharge Diagnosis: Wound exploration with repair of fascial dehiscence, lysis of adhesions, partial small bowel resection. Condition on Discharge: Fair Activity: Per Instructions section Lifting: No more than 10 pounds Bathing Comment: may shower; no soaking in tubs/pools x 2 weeks Exercise/Sports: Wait until after follow-up appointment Driving/Machine Use: wait at least 1 week and no driving while on narcotics for pain Non-emergency contact: Surgeon Call non-emergency contact if: you have any medication questions, your symptoms worsen, you have a fever, your temperature is above 101.5, your wound has increased redness, your wound has increased drainage and your wound pain has increased Follow-up/Referrals: Vitor Monson DO [Surgeon] - (please call to schedule follow up in the office in 2 weeks) Nikos Aviles DO [Primary Care Provider] - Diet: Low Fiber Addtl Attending Provider Instructions: SPECIAL CARE INSTRUCTIONS: * You have nasrin in place that will be removed at your follow up appointment. You also have a white plastic drain in the incision called a travis that should remain in place and will be removed in the office. Cover incisions and change daily for comfort/drainage with dry 4x4 gauze, ABD pad, and medipore tape * Continue to wear your abdominal binder as much as you tolerate. You may remove it to shower and for bathing as needed. * You may shower. NO soaking in pools or baths for 2 weeks * No lifting greater than 10lbs. No strenuous exercise until cleared by surgeon. Light walking is accepted. * No driving while taking narcotic pain medication; wait at least 1 week * No drinking alcohol while taking narcotic pain medication * Please complete the full course of antibiotic prescribed to you * Please check your blood pressure daily at the same time every day and keep a log. Your lisinopril has been held while you have been in the hospital as it has been ranging from 100-120s/60-80s. Follow up with your Primary Care Provider within the week with your blood pressure log for evaluation of timing of when you should resume your blood pressure medication. If during your home blood pressure checks you are becoming hypertensive call your PCP for a sooner appt as you likely should resume the lisinopril. * May use Ibuprofen/Tylenol over the counter for pain as tolerated. Do not exceed 3grams of Tylenol per 24 hours * Expect some swelling and bruising. * Diet- low fiber diet Call your doctor if: * Temperature above 101 degrees, nausea/vomiting, fever/chills * Pain not relieved by pain medicine ordered * There is increased drainage or redness from any incision * You have any unanswered questions or concerns [phone]. FOLLOW UP VISIT: If not already scheduled, please call the office for a follow-up visit. Office Pending Studies at Discharge: Yes Studies:: pathology Stand-Alone Forms: [facility], Smoking Cessation Medications and DC Order Prescriptions: New oxycodone 5 mg tablet 5 - 10 mg PO .[id number] PRN (Reason: pain, for initial therapy, max 6 tabs per day) Qty: 15 0RF amoxicillin-pot clavulanate 875-125 mg tablet 1 tab PO BID 5 Days Qty: 10 0RF Continued aspirin 81 mg tablet 81 mg PO DAILY Patient Comments: on hold multivitamin Tablet 1 tab PO DAILY Patient Comments: holding cholecalciferol (vitamin D3) 25 mcg (1,000 unit) capsule 25 mcg PO DAILY omega 9-hhh-[id number]-fish oil [Fish Oil] 1,000 (120-180) mg capsule 1 cap PO DAILY Patient Comments: holding oxycodone 5 mg tablet 5 - 10 mg PO .[id number] PRN (Reason: pain, for initial therapy, max 6 tabs per day) Qty: 15 0RF (DME) Wheeled Walker Misc See Rx Instructions .Route Qty: 1 0RF Rx Instructions: As directed Held lisinopril 20 mg tablet 20 mg PO QAM Hold Instructions: Resume on 05/24/25. hold lisinopril until you see your PCP within the week unless your blood pressure gets into the hypertensive range Discharge Orders: Discharge Order (Routine); Ordered 05/19/25 Ordered By: Rosita Suero Admission Data Admit Date/Time: 05/12/25 16:22 Attending Provider: Vitor Monson Admit Provider: Vitor Monson Primary Care Provider: Nikos Aviles Other Providers: [facility],Home Health Other Interventions: Discharge Summary Assessment (RN) Last Done: 05/19/25 10:28 Coding Level of Care Code 98311 IN/OBS DISCH 30 MIN/LESS Diagnoses Postoperative wound dehiscence T81.31XA
== END 2025-05-19 14:55 | disposition home or self-care (01) | DRG 909 ==
LOC: ED 15:33 → INTOOBSV 16:22 → 3E 16:22 → 2N 05-13 18:16